=== PATIENT | female | born 1950 | race Caucasian/White ===

== ENCOUNTER → 2018-04-22 06:33 | Outpatient (CLI) | payer MEDICARE, OTHER, SELFPAY ==
--- NOTE | 2018-04-22 06:48 | CT_ITS ---
STUDY: CT INTERNAL AUDITORY CANALS WITHOUT CONTRAST. REASON FOR EXAM: Female, 67 years old. RADIATION DOSAGE (If Supplied By Facility): CTDIvol = ( 82.28 ) mGy, DLP = ( 765.64 ) mGycm. Thank you Individualized dose optimization techniques were used for this CT.? TECHNIQUE: Thin slice helical CT acquisition was performed through the temporal bones from the level of the maxilla to the superior orbits 0.65 mm slice thickness, with coronal and sagittal reconstructions through the temporal bones and internal auditory canals. COMPARISON: None. FINDINGS: Extra cranial soft tissues: Cranial soft tissues including orbital contents exhibit no acute abnormality. There is a lipoma of the right scalp above the ear. The lipoma measures up to 4.2 cm craniocaudal, 1.4 cm transverse thickness, 5.5 cm anterior-posterior. Craniofacial osseous structures: No acute abnormality. Paranasal sinuses: Clear. Upper cervical soft tissues and pharyngeal soft tissues: Normal. Brain: Evaluated portions exhibit no acute abnormality. Limited evaluation. Right temporal bone: The mastoid air cells are clear. The middle ear cavity is clear. Normal external auditory canal. Symmetric and grossly normal appearance of the internal auditory canal, 3 normal turns of the cochlea, normal saccular utricle, 3 normally oriented semicircular canals. Normal appearance of the malleus, incus and stapes and tympanic membrane. Normal external auditory canal. Normal appearance of the stapedial footplate. Left temporal bone: There is partial opacification of the left mastoid sinuses, with mucoperiosteal thickening extending into the middle ear cavity, but without complete opacification of the middle ear cavity. Normal appearance of the malleus, incus, stapes and stapedial footplate. Normal appearance of the internal auditory canal, 3 normal turns of the cochlea, normal saccular utricle, and 3 normally oriented semicircular canals. Normal appearance of the tympanic membrane and external auditory canal. CT/Orb Sella Post Fossa Ear w/o IMPRESSION: 1. Lipoma of the right temporal scalp. 2. Normal appearance of the vestibular and acoustic apparatus on the right. 3. Partial opacification of the mastoid sinuses on the left, and mucoperiosteal thickening in the middle ear cavity. These features favor mastoiditis and otitis media. ENT consultation is recommended. 4. On the left the vestibular and acoustic apparatus of the temporal bone appear otherwise normal and symmetric compared to the right. Electronically Signed: Dontrell Benavides, at 17:57 EDT Tel , Service support ,
== END ==
PROVIDERS: Visit Provider Otolaryngology
DX: H71.92 Unspecified cholesteatoma, left ear (principal); G93.9 Disorder of brain, unspecified
CPT/HCPCS: 70480

== ENCOUNTER 2018-08-01 09:56 | Day surgery (SDC) | payer MEDICARE, OTHER, SELFPAY ==
--- NOTE | 2018-07-26 08:49 | EKG12_ITS ---
Test Reason : PREOP Blood Pressure : / mmHG Vent. Rate : 054 BPM Atrial Rate : 054 BPM P-R Int : 196 ms QRS Dur : 074 ms QT Int : 466 ms P-R-T Axes : 025 011 017 degrees QTc Int : 441 ms Sinus bradycardia Nonspecific T wave abnormality Abnormal ECG Confirmed by BRIGHT AYALA, SENA ([id number]), magazine editor SARAHI SIMMONS ([id number]) on 07/29/2018 10:49:00 AM Referred By: Ezio Aparicio Confirmed By:SENA NOVOA MD
[2018-07-26 09:47] LABS: Hemoglobin A1c 5.6 % (4.2-6.3)
[2018-07-26 09:59] LABS: Anion Gap 9 (5-15); BUN 15 mg/dL (7-18); BUN/Creat Ratio 23.5 RATIO (10-20); Calcium,Total 8.6 mg/dL (8.5-10.1); Chloride 106 mmol/L (98-107); Creatinine, Serum 0.64 mg/dL (0.55-1.02); EST Glomerular Filtration Rate 99 mL/min (>60); Est Glom Filt Rate - Afr Amer 120 mL/min (>60); Glucose 93 mg/dL (74-106); Potassium 3.6 mmol/L (3.5-5.1); Sodium Level 142 mmol/L (136-145)
[2018-08-01 10:29] VITALS: BP 186/69; PULSE 63; RESP 16; TEMP 36.9; O2SAT 100; BMI 46.0
[2018-08-01 10:51] LABS: Bedside Glucose 108 mg/dL (70-110)
[2018-08-01 11:10] LABS: Hematocrit 45.1 % (37-47); Hemoglobin 14.4 g/dl (12.0-15.0); Mean Corp Hgb Conc 31.9 g/gl (32-36); Mean Corpuscular Hgb 27.7 pg (27.0-32.0); Mean Corpuscular Volume 86.7 fL (81-99); Mean Platelet Vol. 10.2 fl (6.2-12.0); Platelet Count 187 K/mm3 (150-450); RBC Distribution Width CV 13.2 % (11.6-14.6); RBC Distribution Width SD 41.9 fl (35.1-43.9); White Blood Count 6.8 K/mm3 (4.4-11.0)
[2018-08-01 11:12] LABS: Scan Indicated on CBC? Y/N NO
--- NOTE | 2018-08-01 12:35 | DCINST_ITS ---
You will use the following diet at home:: No restrictions Your food should be the consistency of: Regular Discharge Activity: Return to Normal Activity Additional Activity Instructions:: Remove dressing tomorrow morning. May shower and get the incision wet on Wednesday. Allergies/Adverse Reactions: Allergies No Known Allergies Allergy (Verified 07/25/18 08:30) Medications to take at Discharge Amlodipine [Norvasc] 5 mg PO DAILY 07/25/18 Lisinopril [Zestril] 20 po.syringe PO DAILY 07/25/18 Metformin HCl [Glucophage] 500 mg PO DINNER 07/25/18 Metoprolol Tartrate [Lopressor (Beta Haven)] 50 mg PO BID 07/25/18 Orders to be completed after discharge: 12 Lead EKG [[facility]] Time Frame: 07/26/18, Location: None Selected Primary Care Physician: Michaela Shaver DO [Primary Care Provider] - Test Results: Test results from this visit will be discussed in further detail at your follow- up appointment, if applicable.
[2018-08-01 13:40] VITALS: BP 106/58; BP 186/69; PULSE 77; RESP 16; TEMP 36.1; O2SAT 97
--- NOTE | 2018-08-01 13:40 | OP.PCM_ITS ---
Report of Operation Date of Procedure: 08/01/18 Pre-Operative Diagnosis: right temporal scalp neoplasm Post-Operative Diagnosis: same Surgery/Procedure Performed:: excision right temporal scalp lipoma Description of Surgical Findings:: lipoma Type of Anesthesia:: General Anesthesiologist: Russell Baeza Specimen's removed: lipoma Estimated Blood Loss (mL): minimal Description of Procedure: The patient was taken to the operating room on 08/01/18. She was placed in the supine position on the OR table. She was given sufficient general anesthesia. The right scalp was was prepped and draped steriley. I injected 1% lidocaine with epinephrine into the skin overlying the mass. After vasoconstriction, a 3 cm incision was made over the mass with a 15 blade. Hemostasis was achieved with monopolar cautery. I dissected bluntly down onto the mass and outlined the mass laterally. Next, I was able to establish a plane posteriorly on the temporalis fascia, which was deep to the mass. I then used sharp dissection to dissect the mass off of the temporalis fascia. Vessels were addressed with bipolar cautery. I continue dissection anteriorly. I then excised the mass by releasing it inferiorly with scissors. This was sent for permanent section. I then irrigated the cavity with copious amounts of saline. Hemostasis was achieved with bipolar cautery. I then closed the incision with 4-0 vicryl in an interrupted subcuticular fashion. Cavalon and steri strips were applied. I then applied a Canadian dressing. The procedure was terminated. The patient was awoken and brought to the recovery room in stable condition. Blood loss minimal, replacement none. Sponge, needle and instrument count were correct at the end of the procedure.
[2018-08-01 13:45] VITALS: BP 148/66; BP 186/69; PULSE 67; RESP 18; O2SAT 97
[2018-08-01 14:00] VITALS: BP 151/74; BP 186/69; PULSE 67; RESP 18; O2SAT 96
--- NOTE | 2018-08-01 14:00 | LIP_PTH ---
PATIENT: GANGA BRUCE LOC: [facility] [place] U#:[id number] AGE/SX: 68/F ROOM: RE08/01/[address]: Dr. Ezio Aparicio MD : 1950 BED: DIS: 08/01/2018 SPEC #: [id number] RECD: 08/01/18 15:33 STATUS: JEREMIAH REPatricia #: [id number] RANDY: 08/01/18 14:[address]: Ezio Aparicio DEPT: SURGICAL PATHOLOGY RECD BY: Chi Coronado ENTERED: 08/02/18 11:52 SP TYPE: LIPOMA OTHR DR: Dr. Michaela Shaver, DO Tissues: Scalp, NOS Procedures: Surgery Specimen Level III HEADER OPERATION: Excision lipoma right scalp PRE-OP DIAGNOSIS: Lipoma right scalp TISSUE SUBMITTED: Scalp lipoma, right temporal MICROSCOPIC DIAGNOSIS Scalp lipoma, right temporal, excision: Mature adipose tissue, consistent with lipoma. SJ:erick 08/03/18 MICROSCOPIC DESCRIPTION Slides are reviewed. GROSS DESCRIPTION Received in fixative is one container labeled with the patient's name and designated right temporal scalp lipoma. The specimen consists of two pieces of disrupted yellow adipose tissue that in aggregate measure 7.5 x 3 x 2 cm. The specimen is serially sectioned and reveals yellow adipose cut surfaces without area of hemorrhage, necrosis or cystic degeneration. Promotions Team Leader sections are submitted in two cassettes. / KUSH:erick 08/02/18 TC:1 CPT: 17019
[2018-08-01 14:10] LABS: Bedside Glucose 114 mg/dL (70-110)
[2018-08-01 14:15] VITALS: BP 155/81; BP 186/69; PULSE 71; RESP 18; TEMP 36.6; O2SAT 95
[2018-08-01 14:54] VITALS: BP 153/68; BP 186/69; PULSE 66; RESP 16; TEMP 36.7; O2SAT 94
== END 2018-08-01 15:17 | disposition home or self-care (01) ==
LOC: SDC 09:57 → AC 10:16
PROVIDERS: Anesthesiology; Referring Provider Otolaryngology; Visit Provider Otolaryngology
DX: D17.0 Benign lipomatous neoplasm of skin and subcutaneous tissue of head, face and neck (principal); R51 Headache; I10 Essential (primary) hypertension; E11.9 Type 2 diabetes mellitus without complications; Z79.84 Long term (current) use of oral hypoglycemic drugs; Z79.891 Long term (current) use of opiate analgesic; Z79.899 Other long term (current) drug therapy
CPT/HCPCS: 21012; 36415; 80048; 82962; 83036; 85027; 88304; 93005; J7120; J2405

== ENCOUNTER → 2020-09-24 05:51 | Outpatient (CLI) | payer MEDICARE, OTHER, SELFPAY ==
--- NOTE | 2020-09-24 07:55 | STRESSREP_ITS ---
Stress Test Report Date: 09-24-2020 Procedure: Pharmacologic stress nuclear imaging study Indications: Atrial fibrillation Consent: Per the patient Procedure: The patient underwent pharmacologic (Regadenoson 0.4mg ) evaluation with a peak heart rate of 136 beats per minute (89%predicted maximal heart rate) and a peak blood pressure of 136/72 mmHg. The baseline ECG demonstrated atrial fibrillation; low voltage QRS; nonspecific ST/T wave abnormality. The peak pharmacologic ECG demonstrated no obvious ECG changes. There were no cardiac dysrhythmias pretest, during pharmacologic infusion, or recovery. There was no complaint of chest discomfort during pharmacologic infusion or recovery. The examination was discontinued secondary to completion of protocol. Impression: 1. Pharmacologic (Regadenoson) evaluation 2. Peak pharmacologic ECG with no obvious ECG changes. 3. There were no cardiac dysrhythmias pretest, during pharmacologic infusion, or recovery. 4. Nuclear images pending Myocardial perfusion imaging study: Technique: The patient was injected with 14.6 millicuries of technetium 99m Cardiolite and subsequently rest SPECT Cardiolite nuclear imaging was obtained in the horizontal long, vertical long, and short axis views. The patient underwent pharmacologic (Regadenoson) evaluation with a peak heart rate of 136 beats per m inute (89% percent predicted maximal heart rate) and a peak blood pressure of 136/72 mmHg. The patient was injected with 44.9 millicuries of technetium 99m Cardiolite and subsequently stress SPECT Cardiolite nuclear imaging was obtained in the horizontal long, vertical long, and short axis views. A gated Cardiolite study at peak stress was obtained. Interpretation: Rest and stress SPECT Cardiolite nuclear imaging status post realignment, normalization, and attenuation correction demonstrate at rest the appearance of subtle diminished tracer uptake in portions of the distal anterior as well as the distal interventricular septal segments which appear to improve/normalize following stress. There is end systolic thickening and brightening. The gated Cardiolite study demonstrates myocardial thickening and inward wall motion. The reported LVEF is 65%. Impression: 1. Rest and stress SPECT Cardiolite nuclear imaging demonstrate myocardial perfusion changes at rest which appear to improve and/or normalize following stress appearing compatible with shifting soft tissue attenuation/artifact with no myocardial perfusion changes considered diagnostic for associated stress- induced myocardial ischemia. 2. The gated Cardiolite study reports an LVEF of 65%. This note was generated with Dragon dictation software. It may contain incorrect words, spelling, and punctuation that were not noted in checking the note before signing.
== END ==
PROVIDERS: PCP Student in an Organized Health Care Education/Training Program
DX: I48.91 Unspecified atrial fibrillation (principal); I07.1 Rheumatic tricuspid insufficiency; I10 Essential (primary) hypertension; R94.31 Abnormal electrocardiogram [ECG] [EKG]
CPT/HCPCS: 78452; 93017; A9500; A4216; J2785

== ENCOUNTER 2020-11-12 10:18 | Day surgery (SDC) | payer MEDICARE, OTHER, SELFPAY ==
[2020-10-17 15:54] VITALS: BMI 49.4
--- NOTE | 2020-10-28 10:57 | RAD_ITS ---
STUDY: X-RAY CHEST REASON FOR EXAM: Female, 70 years old. Pre procedure evaluation TECHNIQUE: PA and lateral views of the chest. COMPARISON: None. FINDINGS: The lungs are clear and expanded. There is no demonstrated pleural abnormality. There is mild cardiac enlargement. Normal mediastinum and nerissa. Normal visualized pulmonary arteries. There is atherosclerotic calcification of the aortic arch with tortuosity. Normal visualized thoracic spine. Normal visualized ribs, clavicles, and shoulders. There is no demonstrated abnormality of the visualized soft tissue structures of the upper abdomen. RAD/Chest PA and Lateral IMPRESSION: Mild cardiomegaly. No acute cardiopulmonary process. Electronically Signed: Aravind Sousa MD (Brooks) at 15:16 EDT , Service support ,
[2020-10-28 11:59] LABS: Anion Gap 7 (5-15); BUN 17 mg/dL (7-18); BUN/Creat Ratio 18.4 RATIO (10-20); Calcium,Total 8.8 mg/dL (8.5-10.1); Chloride 107 mmol/L (98-107); Creatinine, Serum 0.92 mg/dL (0.55-1.02); EST Glomerular Filtration Rate 64 mL/min (>60); Est Glom Filt Rate - Afr Amer 78 mL/min (>60); Glucose 102 mg/dL (74-106); Potassium 3.4 mmol/L (3.5-5.1); Sodium Level 141 mmol/L (136-145)
[2020-11-11 08:21] VITALS: BMI 49.4
--- NOTE | 2020-11-12 09:57 | PCM.HP.BLA ---
Problem List (1) Atrial fibrillation Status: Acute Qualifiers: History and Physical Date of Admission: 11/12/20 [facility] [address] [place] [address] OFFICE VISIT Date of Service: 10/17/20 MR#: [id number] Acct: [id number] Name: GANGA BRUCE Rep #: [id number] : 1950 Provider: Dr. Kulwant Anderson MD Age/Sex: 70/F [place] [facility] Status: Signed [facility] History of Present Illness Details: This is a 70-year-old white female who presents today for outpatient cardiovascular consultation based upon concerns of atrial fibrillation. She was found earlier this year to be in atrial fibrillation. She is being evaluated by her primary care physician through the [facility] system. According to a note from 09-13-2020 she was considered to have atrial fibrillation is a new diagnosis. The etiology was unclear. She subsequently underwent evaluation under their system with a transthoracic echocardiogram. According to the report the left ventricle was normal with an LVEF of 50 to 55% with the ventricular septum having dyssynergic motion, the mitral valve being mildly calcified with respect to the annulus and having mild MR, the left atrium being mildly dilated, the right ventricle having an estimated RV systolic pressure of 39 mmHg, the tricuspid valve having mild to moderate TR, and the right atrium having an estimated RA pressure of 8 mmHg. She has since undergone evaluation at [facility] which included a pharmacologic stress nuclear imaging study performed on 09-24-2020. Per the report she had no myocardial perfusion changes consider diagnostic for associated stress-induced myocardial ischemia. Her gated LVEF was 65%. She has been on medical therapy with rate control and anticoagulant therapy. She states she does not necessarily note her atrial dysrhythmia at this time. There is been no near syncope or syncope. She has had no ongoing issues of classic angina pectoris or overt issues of CHF or pulmonary edema. She did have an ECG in the office today. She was noted to remain in atrial fibrillation with a ventricular rate of 104 bpm with findings of poor R wave progression and diffuse nonspecific T wave abnormality. Intake Vital Signs 10/17/20 Height 5 ft 5 in 10/17/20 Weight: 297 lb 2 oz 10/17/20 BMI 49.4 10/17/20 BP 132/70 H 10/17/20 Blood Pressure Location Lt brachial 10/17/20 Position Sitting 10/17/20 Respiration 16 10/17/20 Pulse 104 H 10/17/20 Pulse Source Auscultation Intake Visit Reasons: A-fib/Self ref. Hangar Attendant Required: No Accompanied by: Self Allergies No Known Allergies Allergy (Verified 10/17/20 15:55) Medications Metoprolol Tartrate [Lopressor (Beta Haven)] 50 mg PO BID 07/25/18 [History Confirmed 10/17/20] metFORMIN HCl [Glucophage] 500 mg PO DINNER 07/25/18 [History Confirmed 10/17/20] diltiazem HCl 240 mg capsule,extended release 24 hr 240 mg PO DAILY 10/15/20 [History Confirmed 10/17/20] lisinopril 20 mg tablet 20 mg PO DAILY tab 10/15/20 [History Confirmed 10/17/20] magnesium oxide 500 mg tablet 500 mg PO DAILY 10/15/20 [History Confirmed 10/17/20] rivaroxaban 20 mg tablet 20 mg PO DAILY 10/15/20 [History Confirmed 10/17/20] furosemide 20 mg tablet 20 mg PO BID 10/17/20 [History Confirmed 10/17/20] PFS Medical History Non-rheumatic tricuspid valve insufficiency (Acute) Non-rheumatic mitral regurgitation (Acute) Pure hypercholesterolemia (Chronic) Essential hypertension (Chronic) Type 2 diabetes mellitus (Chronic) Atrial fibrillation (Acute) Anxiety (Acute) Surgical History History of hysterectomy (Resolved) Family History Mother Diabetes Hypertension Father Hypertension Social History (Updated 10/17/20 @ 18:[address] Kulwant Anderson MD) Smoking Status: Never smoker alcohol intake: never substance use type: does not use caffeine: Yes ROS Const Const: Negative for fatigue, weakness, frequent falls, excessive sweating, weight gain or weight loss Eyes Eyes: Negative for transient loss of vision, blurry vision or change in vision ENT ENT: Negative for dizziness or balance problems Cardio Chest Pain: No Palpitations: Yes feels like its: irregular Edema: Left (LE slight) Muscle aches with walking: None Resp Respiratory: Positive for SOB with activity; negative for SOB at rest GI GI: Negative vomiting or vomiting blood/hematemesis : Negative for hematuria Musc Musc: Negative for muscle aches/ myalgia, muscle weakness, joint pain or balance problems Skin Skin: Negative non-healing lesions or rash Neuro Neuro: Negative for dizziness, lightheadedness, orthostatic symptoms, frequent falls, weakness or blurry vision Alonzo Hematologic/Lymphatic: Negative for easy bleeding Endo Endo: Negative for fatigue or excessive sweating Psych Psych: Negative for anxiety or depression Allergy Allergy/Immunology: Negative for hives, Negative for rash Cardiology Exam Const Appearance: cooperative, healthy appearing, comfortable, no acute distress, well developed and well groomed Nutritional Appearance: obese Orientation: alert, awake and oriented x3 Head Head: normal to inspection, normocephalic and atraumatic Ears: hearing grossly normal bilaterally Nose: external nose normal Face and Sinus: face symmetric Eyes Eyelids: eyelids normal Conjunctivae: conjunctivae normal Pupils: PERRL EOM: EOM intact bilaterally Neck Neck: normal visual inspection and full ROM Carotids: normal carotid upstroke Chest Chest inspection: normal inspection of the chest, symmetric chest movement and normal respiratory effort Auscultation: Bilateral: Clear to Auscultation Cardio Palpation: normal PMI Rhythm: irregular rhythm Heart sounds: S1 normal and S2 normal GI GI: normal to inspection, soft, bowel sounds present and obese Neuro General: alert, awake, oriented x3 and moves all extremities Skin Skin: no rashes or lesions noted Extremities Pulses: Normal: Right Radial Pulse, Left Radial Pulse Lower Extremity Edema: +1: Bilateral Psych Psychological: normal affect Assessment & Plan 1. Persistent atrial fibrillation I48.19 Plan She does have atrial fibrillation. The etiology is unclear at the moment although it may be related to a combination of her age and her hypertension history. At the moment she is on rate control with reasonable rate control. She is on anticoagulant therapy. She was asked to continue her medical therapy. She was asked to consider future evaluation with synchronized biphasic DC cardioversion. The procedure was were discussed with her. She states she will have to consider this and decide whether or not she wants to proceed in such manner versus continuing conservative medical therapy. 2. Nonrheumatic mitral valve regurgitation I34.0 Plan She does have a history of MR/TR. This is based upon her echocardiographic findings. She can be followed by history, exam, and future echocardiogram as deemed appropriate. Orders Orders: 12 Lead EKG performed by [facility] Today 3. Nonrheumatic tricuspid valve regurgitation I36.1 Plan She will continue evaluation care as noted. Orders Orders: 12 Lead EKG performed by [facility] Today 4. Pure hypercholesterolemia E78.00 Plan She has a history of hyperlipidemia. She states she is following with her PCP for this. Orders Orders: 12 Lead EKG performed by [facility] Today 5. Essential hypertension I10 Plan Her blood pressure appears to be reasonably well controlled today. Again this may be a contributing factor to her atrial dysrhythmia. She will need to continue medical therapy and follow-up. Orders Orders: 12 Lead EKG performed by [facility] Today Plan Detail Other Orders Orders: 12 Lead EKG performed by [facility] Today I48.91 Additional Comments The above was discussed with her at length. At the moment she wants to continue her current medications and consider her future options. She appeared agreeable to a future outpatient follow-up. Thank you for allowing me to participate in the care of your patient. Please don't hesitate to call if any issues arise. This note was generated using a voice recognition system and there may be incorrect words, spelling or punctuation that were not noted when reviewing the office note prior to saving. Follow Up 3 Months (PFM) Coding Level of Care Code Off vis,new,level 3 Diagnoses Persistent atrial fibrillation I48.19 ??Atrial fibrillation type: persistent (not longstanding) Nonrheumatic mitral valve regurgitation I34.0 Nonrheumatic tricuspid valve regurgitation I36.1 Pure hypercholesterolemia E78.00 Essential hypertension I10 Coding Level of Care Code Off vis,new,level 3 Diagnoses Persistent atrial fibrillation I48.19 ??Atrial fibrillation type: persistent (not longstanding) Nonrheumatic mitral valve regurgitation I34.0 Nonrheumatic tricuspid valve regurgitation I36.1 Pure hypercholesterolemia E78.00 Essential hypertension I10 Supplemental Info Supplemental Information Stress Test Report Date: 09-24-2020 Procedure: Pharmacologic stress nuclear imaging study Indications: Atrial fibrillation Consent: Per the patient Procedure: The patient underwent pharmacologic (Regadenoson 0.4mg ) evaluation with a peak heart rate of 136 beats per minute (89%predicted maximal heart rate) and a peak blood pressure of 136/72 mmHg. The baseline ECG demonstrated atrial fibrillation; low voltage QRS; nonspecific ST/T wave abnormality. The peak pharmacologic ECG demonstrated no obvious ECG changes. There were no cardiac dysrhythmias pretest, during pharmacologic infusion, or recovery. There was no complaint of chest discomfort during pharmacologic infusion or recovery. The examination was discontinued secondary to completion of protocol. Impression: 1. Pharmacologic (Regadenoson) evaluation 2. Peak pharmacologic ECG with no obvious ECG changes. 3. There were no cardiac dysrhythmias pretest, during pharmacologic infusion, or recovery. 4. Nuclear images pending Myocardial perfusion imaging study: Technique: The patient was injected with 14.6 millicuries of technetium 99m Cardiolite and subsequently rest SPECT Cardiolite nuclear imaging was obtained in the horizontal long, vertical long, and short axis views. The patient underwent pharmacologic (Regadenoson) evaluation with a peak heart rate of 136 beats per minute (89% percent predicted maximal heart rate) and a peak blood pressure of 136/72 mmHg. The patient was injected with 44.9 millicuries of technetium 99m Cardiolite and subsequently stress SPECT Cardiolite nuclear imaging was obtained in the horizontal long, vertical long, and short axis views. A gated Cardiolite study at peak stress was obtained. Interpretation: Rest and stress SPECT Cardiolite nuclear imaging status post realignment, normalization, and attenuation correction demonstrate at rest the appearance of subtle diminished tracer uptake in portions of the distal anterior as well as the distal interventricular septal segments which appear to improve/normalize following stress. There is end systolic thickening and brightening. The gated Cardiolite study demonstrates myocardial thickening and inward wall motion. The reported LVEF is 65%. Impression: 1. Rest and stress SPECT Cardiolite nuclear imaging demonstrate myocardial perfusion changes at rest which appear to improve and/or normalize following stress appearing compatible with shifting soft tissue attenuation/artifact with no myocardial perfusion changes considered diagnostic for associated stress-induced myocardial ischemia. 2. The gated Cardiolite study reports an LVEF of 65%. Diagnostics Electrocardiogram 10/17/20 Stress Test Nuclear Medicine 09/24/20 Stress Test 09/24/20 10/17/20 [id number] <Electronically signed by Kulwant Anderson MD> Date Kulwant Anderson MD Cosignmartha Signature: Date (if applicable) CC: Dr. Michaela Shaver, DO ~ I have examined the patient the following changes are noted: The patient elected to proceed with outpatient synchronized biphasic DC cardioversion. The procedure and risk were discussed with her. She was agreeable to this approach. Procedure Criteria Procedure Type: Elective COVID Risk Discussion: The surgeon/proceduralist and patient have discussed in detail the risk of exposure to and/or potential harm posed by the COVID-19 virus with having a surgery/procedure at this time versus the risk of delaying the surgery/procedure. It is not possible to know either the risk of delaying the surgery or procedure or chance of getting an infection with perfect accuracy, but a joint decision was made between the patient and the surgeon/proceduralist to proceed at this time with the scheduled surgery/procedure as indicated on the consent form.
--- NOTE | 2020-11-12 12:38 | PRO.PCM_ITS ---
Problem List (1) Atrial fibrillation Status: Acute Qualifiers: (2) Non-rheumatic mitral regurgitation Status: Acute (3) Essential hypertension Status: Chronic (4) Pure hypercholesterolemia Status: Chronic (5) Type 2 diabetes mellitus Status: Chronic Procedure Report Date of Procedure: 11/12/20 CONSCIOUS SEDATION REPORT BRIEF HISTORY OF PRESENT ILLNESS: The patient is a 70-year-old female who presented to [facility] for an elective outpatient cardioversion due to underlying atrial fibrillation. The patient reports no PO intake since midnight. The patient does have a history of obstructive sleep apnea. The patient reports no history of smoking and COPD. The patient denies any recent constitutional symptoms such as fevers, chills, nausea or vomiting. The patient denies previous anesthetic complications. Patient's last known ejection fraction was 50 to 55%. Patient reported taking her Xarelto within 24 hours of the procedure. PHYSICAL EXAMINATION: VITAL SIGNS: Reviewed and were acceptable. GENERAL: The patient is a female, in no apparent distress, speaking in full sentences. HEENT: Normocephalic, atraumatic. Mucous membranes are moist and pink. Good mouth opening noted. Trachea is midline. Good neck mobility. MP IV CHEST: S1, S2 irregularly irregular. No murmurs, rubs or gallops were noted. LUNGS: Clear to auscultation bilaterally without appreciable wheezes, rales or rhonchi. ABDOMEN: Soft, nontender, nondistended. Positive bowel sounds. EXTREMITIES: There is no clubbing, cyanosis or edema. ASA Class: II DESCRIPTION OF PROCEDURE: After confirmation of informed consent, the patient's anesthesia plan was reviewed in detail. Propofol was chosen. Risks and benefits were reviewed and the patient agreed to proceed. At 12:13 PM, the patient was given 40 mg of propofol. The patient required a total of 90 mg of propofol throughout the p rocedure to achieve appropriate sedation. The patient achieved an appropriate level of sedation and received 2 attempt s synchronized cardioversion, at 200 J and [address] Anderson at the bedside. This was successful in achieving normal sinus rhythm. The patient was monitored until 12:24 PM, at which time the patient reached their baseline mental status and function. The patient tolerated the procedure well. COMPLICATIONS: None ESTIMATED BLOOD LOSS: None RECOMMENDATIONS: Okay to recover in usual fashion. [id number]: Other Procedure See Report - [id number]
--- NOTE | 2020-11-12 12:44 | CARDIOVERS ---
Cardioversion Cardioversion: Date: ?2020 Procedure: Synchronized Biphasic DC Cardioversion Indications: Atrial fibrillation Consent: Per the Patient Anesthesia: per Dr. Holm of pulmonology and critical care medicine with propofol 90 mg IV push total Procedure: Synchronized Biphasic DC Cardioversion: 200 J x 1: Result: Atrial fibrillation Synchronized biphasic DC cardioversion: 300 J x 1: Result: Sinus rhythm Complications: no apparent complications This note was generated with MolecuLight[employer] software. It may contain incorrect words, spelling, and punctuation that were not noted in checking the note before signing.
== END 2020-11-12 13:27 | disposition home or self-care (01) ==
LOC: CLSP 10:18
PROVIDERS: Referring Provider Internal Medicine Cardiovascular Disease; Visit Provider Internal Medicine Cardiovascular Disease
DX: I48.19 Other persistent atrial fibrillation (principal); E78.00 Pure hypercholesterolemia, unspecified; I10 Essential (primary) hypertension; E11.9 Type 2 diabetes mellitus without complications; I08.1 Rheumatic disorders of both mitral and tricuspid valves; G47.33 Obstructive sleep apnea (adult) (pediatric); Z79.84 Long term (current) use of oral hypoglycemic drugs; Z79.01 Long term (current) use of anticoagulants; Z79.899 Other long term (current) drug therapy
CPT/HCPCS: 36415; 71046; 80048; 92960; 93005; J7040

== ENCOUNTER 2020-12-09 00:58 | Emergency (ER) | payer MEDICARE, OTHER, SELFPAY ==
[2020-12-03 09:56] VITALS: BMI 49.4
[2020-12-09 00:59] VITALS: BP 148/114; PULSE 121; RESP 16; TEMP 36.2; O2SAT 95; BMI 49.1
[2020-12-09 01:04] VITALS: BP 148/114; PULSE 121; RESP 16; TEMP 36.2; O2SAT 95
--- NOTE | 2020-12-09 01:10 | CT_ITS ---
STUDY: CT ABDOMEN AND PELVIS WITH CONTRAST REASON FOR EXAM: Female, 70 years old. ruq abd pain RADIATION DOSAGE (If Supplied By Facility): CTDIvol = ( 28.71 ) mGy, DLP = ( 1291.18 ) mGycm TECHNIQUE: Transaxial images were obtained from the dome of the diaphragm to the symphysis pubis without oral contrast. IV 100mL Isovue-370 was administered. Sagittal and coronal images were reconstructed. Individualized dose optimization techniques were used for this CT. COMPARISON: None. FINDINGS: Borderline cardiomegaly. Trace bilateral pleural effusions versus pleural thickening. Diffuse hepatic steatosis. Unremarkable spleen, pancreas, bilateral kidneys, and left adrenal. Approximately 1.9 cm heterogeneously enhancing nodule in the right adrenal, nonspecific. MRI in and out of phase may be obtained for further evaluation. Subcentimeter layering stones in the gallbladder. No CT evidence of acute appendicitis. Bowel loops nonobstructed. Distal colonic diverticulosis. No acute diverticulitis. No free air or free fluid. No adenopathy. Vascular calcification with no abdominal aortic aneurysm. Sections through the pelvis demonstrate evidence of prior hysterectomy. No adnexal mass. Incompletely distended urinary bladder. Subcutaneous edema/cellulitis in the anterior pelvic wall multilevel thoracolumbar spondylosis. Small sclerotic foci in the pelvic bones and proximal femoral, probably bone islands. CT/Abdomen/Pelvis W IV Cont ONLY IMPRESSION: Cholelithiasis. Diffuse hepatic steatosis. Other chronic findings as above. Electronically Signed: Harsh De La Cruz MD at 2:35 EDT Tel , Service support ,
--- NOTE | 2020-12-09 01:14 | ED.DCSUM_ITS ---
- ER Visit Summary Date of Service: 12/09/20 Chief Complaint: Right upper quadrant abdominal pain History of Present Illness: The patient is a 70 F history of A. fib, diabetes and hypertension. Prior cardioversion. Prior hysterectomy. Patient states she has had intermittent right upper quadrant abdominal pain for 2 months. Seems worse today. Currently she is pain-free. She denies any vomiting. No diarrhea. No melena. No fever. Thinks she may be slightly constipated. No dysuria. Physical Examination: Older female no acute distress vital signs stable afebrile. Initial blood pressure 140/114 initial heart rate 121. HEENT exam unremarkable. Moist with membranes. Neck nontender no lymphadenopathy. Lungs clear to auscultation bilaterally. Heart tachycardic rate about 120 no murmur. Chest wall nontender. Abdomen soft nontender nondistended normal bowel sounds. No peritoneal signs. Absolutely no right upper or right lower quadrant tenderness. No Watters sign or McBurney's point tenderness. No hernia or mass. No signs of obstruction. No pulsatile mass. She is obese. Patient is moving all 4 extremities. Trace lower extremity edema. Back nontender no CVA tenderness. Neurologically patient is awake and alert with no focal motor deficits. Test Results: CBC shows a white count 11.3 hemoglobin 13 no bands chemistries normal normal creatinine and gap liver enzymes normal. Lipase normal. UA shows blood but no acute signs of infection. Is contaminated sample. EKG A. fib rate of 155. No signs of RI or ischemia. CT abdomen pelvis with IV contrast shows cholelithiasis. Hepatic steatosis. And chronic changes. Read by the radiologist and reviewed by me. Repeat exam patient is doing well at 3:40 AM. She has no abdominal pain. She was given a dose of labetalol and her heart rate went from 150s to 80s. She does not want to be admitted to the hospital. She and her are comfortable with outpatient follow-up with general surgery. We discussed all of her test results and my diagnoses. Emergency Department Course and Treatment: Older female with prior right upper quadrant abdominal pain currently resolved and pain-free. Benign exam. Known history of A. fib and currently tachycardic. Treatment Plan: Continue her current medications. Follow-up with Dr. Inés Kee of general surgery for cholelithiasis. Disposition: Discharge Impression: Acute right upper quadrant abdominal pain secondary to cholelithiasis with biliary colic History of A. fib with acute RVR History of diabetes, hypertension high cholesterol Anticoagulated on Eliquis This note was generated with [employer]Got[employer] dictation software. It may contain incorrect words, spelling, and punctuation that were not noted in review of the chart prior to signing ED Disposition - Plan for ED Patient: Referrals: Michaela Shaver DO [Primary Care Provider] -
--- NOTE | 2020-12-09 01:17 | EKG12_ITS ---
Test Reason : DYSRYTHMIA Blood Pressure : / mmHG Vent. Rate : 155 BPM Atrial Rate : 150 BPM P-R Int : 000 ms QRS Dur : 070 ms QT Int : 300 ms P-R-T Axes : 000 -05 106 degrees QTc Int : 482 ms Atrial fibrillation Septal infarct , age undetermined Abnormal ECG Confirmed by BRIGHT AYALA, SENA ([id number]), editor & co founder IZZY WILSON ([id number]) on 12/11/2020 8:53:21 AM Referred By: REGIS Confirmed By:SENA NOVOA MD
[2020-12-09 01:23] LABS: Absolute Lymphocyte Count 1.83 X10^3/uL (0.83-4.51); Absolute Neutrophil Count 8.4 X10^3/uL (2.0-7.7); Basophil# 0.06 X10^3/uL; Basophil% 0.5 % (0-1); Eosinophil# 0.15 X10^3/uL; Eosinophils% 1.3 % (0-5); Hematocrit 42.9 % (37-47); Lymphocyte # 1.83 X10^3/ul (0.83-4.51); Lymphocyte % 16.3 % (19-41); Mean Corp Hgb Conc 30.3 g/dL (32-36); Monocyte# 0.78 X10^3/uL; Monocyte% 6.9 % (0-10); NRBC Flagged by Analyzer 0 % (0-5); Neutrophil % 74.7 % (47-70); Platelet Count 310 K/mm3 (150-450); RBC Distribution Width CV 13.9 % (11.6-14.6); RBC Distribution Width SD 44.7 fl (35.1-43.9); Red Blood Count 4.82 M/mm3 (4.2-5.4); White Blood Count 11.3 K/mm3 (4.4-11.0)
[2020-12-09] MEDS: 0.9% Normal Saline 1,000 ML 1000 ML IV (01:24)
[2020-12-09 01:30] LABS: Bacteria 0 SEEN /hpf (None Seen); Mucous, Urine 0 SEEN /hpf (<or=2+)
[2020-12-09 01:32] LABS: Color, Urine Yellow (Yellow); Glucose, Dipstick Normal (Normal); Ketone-Dipstick 5 mg/dl (Negative); Leukocyte Esterase-Dipstick 500 /ul (Negative); Nitrite-Dipstick Negative (Negative); Occult Blood-Urine 150 /ul (Negative); Protein-Dipstick 500 mg/dl (Negative); Specific Gravity, Urine 1.025 (1.002-1.030); Urine Bilirubin Dipstick Negative (Negative); Urine Clarity Sl. Cloudy (Clear); Urine Urobilinogen 1 mg/dl (Normal)
[2020-12-09 01:38] LABS: Red Blood Cells-Urine 5-10 SEEN /hpf (0-5); Squamous Epithelial Cells - UA 5-10 SEEN /hpf (5-10); White Blood Cells 10-25 SEEN /hpf (0-5)
[2020-12-09 01:43] LABS: AST(SGOT) 21 U/L (15-37); Alanine Aminotransfer ALT/SGPT 31 U/L (13-56); Albumin, Serum 3.3 g/dL (3.2-5.0); Alkaline Phosphatase 94 U/L (45-117); Anion Gap 6 (5-15); BUN 27 mg/dL (7-18); Bilirubin, Direct 0.16 mg/dL (0.00-0.30); Calcium,Total 8.7 mg/dL (8.5-10.1); Chloride 105 mmol/L (98-107); Creatinine, Serum 1.04 mg/dL (0.55-1.02); EST Glomerular Filtration Rate 56 mL/min (>60); Est Glom Filt Rate - Afr Amer 68 mL/min (>60); Estimated Creatinine Clearance 48.47 ml/min; Glucose 138 mg/dL (74-106); Lipase 207 U/L (73-393); Potassium 3.7 mmol/L (3.5-5.1); Protein, Total 7.3 g/dL (6.4-8.2); Sodium Level 137 mmol/L (136-145)
[2020-12-09 02:38] VITALS: BP 124/112; PULSE 132; RESP 15
[2020-12-09] MEDS: Labetalol (Prefilled) 20 MG/4 ML 40 MG IV (02:47)
[2020-12-09 02:59] VITALS: BP 120/96; PULSE 89; RESP 16; O2SAT 94
--- NOTE | 2020-12-09 03:42 | ED.DEP ---
ED Disposition - Plan for ED Patient: Disposition: Home or Assisted Living Instructions: ED Abdominal Pain Gallstone Poss Referrals: Michaela Shaver DO [Primary Care Provider] - As Needed Inés Kee MD [STAFF PHYSICIAN] - As soon as possible Additional Instructions: Call follow-up with Dr. Inés Kee of [facility] for further evaluation of your gallstones. Return if worsening pain, fever or intractable vomiting. Continue your current medications make sure you take your medications for your A. fib so that your heart rate does not go up again.
[2020-12-09 03:52] VITALS: BP 120/87; PULSE 90; RESP 16; O2SAT 96
== END 2020-12-09 03:53 | disposition home or self-care (01) ==
PROVIDERS: Emergency Provider Emergency Medicine
DX: R10.11 Right upper quadrant pain (principal); K80.70 Calculus of gallbladder and bile duct without cholecystitis without obstruction; E11.9 Type 2 diabetes mellitus without complications; I10 Essential (primary) hypertension; I48.91 Unspecified atrial fibrillation; Z79.01 Long term (current) use of anticoagulants; Z79.84 Long term (current) use of oral hypoglycemic drugs
CPT/HCPCS: 74177; 80048; 80076; 81001; 83690; 85025; 87086; 87088; 93005; 96361; 96374; 99283; J7030; Q9967; A4216

== ENCOUNTER 2020-12-11 08:17 | Observation (INO) | payer MEDICARE, OTHER, SELFPAY ==
[2020-12-11] VITALS (24 sets, daily range): BP systolic 90–159; BP diastolic 73–141; PULSE 88–144; RESP 16–31; TEMP 35.8–36.7; O2SAT 92–97; BMI 49.9; BMI 50.7
--- NOTE | 2020-12-11 08:52 | EKG12_ITS ---
Test Reason : Blood Pressure : / mmHG Vent. Rate : 143 BPM Atrial Rate : 141 BPM P-R Int : 000 ms QRS Dur : 074 ms QT Int : 306 ms P-R-T Axes : 000 000 175 degrees QTc Int : 472 ms Atrial fibrillation Septal infarct , age undetermined Abnormal ECG Confirmed by BRIGHT AYALA, SENA ([id number]), website/blog editor IZZY WILSON ([id number]) on 12/12/2020 9:17:01 AM Referred By: TATE Confirmed By:SENA NOVOA MD
--- NOTE | 2020-12-11 08:54 | EX.ED.DYSGE1 ---
HPI History of Present Illness Chief Complaint: Palpitations Informant: patient and spouse/S.O. Narrative Narrative: 70-year-old female presents to the emergency department with atrial fibrillation with RVR. Patient can provide very little information as to her previous medical history/recent history. She tells me that she just signed out of [facility] where she was there for abdominal pain. She tells me that her surgeon at [facility] told her that if she needed to have her gallbladder removed she should go there. She has been having nightly abdominal pain and was found to have cholelithiasis on CT a couple days ago. So the patient went to [facility] and was noted to be in A. fib with RVR. They gave her 3 doses of metoprolol and were going to place her on diltiazem. The patient could not take the cold so she signed out and came here. Patient states she is no longer having abdominal pain. She tells me that her doctors told her to stop taking her diltiazem because it was causing the rash that is on her bilateral legs and feet. According to their notes she was to continue diltiazem and metoprolol but be changed from Xarelto to Eliquis. She states that she is on Keflex because of this rash. Nursing informs me that she had a cardioversion last month and was in sinus rhythm. [facility] Medical History (Updated 12/11/20 @ 10:[address] Dylan Sarkar, ) Anxiety Atrial fibrillation Essential hypertension Non-rheumatic mitral regurgitation Non-rheumatic tricuspid valve insufficiency Pure hypercholesterolemia Type 2 diabetes mellitus Home Medications metformin 500 mg PO DINNER 07/25/18 [History Last Taken Unknown] lisinopril 20 mg tablet 20 mg PO DAILY tablet 10/15/20 [History Last Taken Unknown] potassium chloride 20 mEq tablet,extended release 20 meq PO DAILY #30 tab 10/29/20 [Rx Last Taken Unknown] furosemide 20 mg tablet 20 mg PO BID #180 tablet 11/20/20 [Rx Last Taken Unknown] apixaban 5 mg tablet 5 mg PO BID #60 tablet 12/03/20 [Rx Last Taken Unknown] betamethasone valerate 0.1 % topical cream 1 applic TOPICAL BID PRN 12/03/20 [History Last Taken Unknown] cephalexin 750 mg capsule 750 mg PO BID #20 cap 12/03/20 [Rx Last Taken Unknown] metoprolol tartrate 50 mg tablet 75 mg PO BID tablet 12/03/20 [History Last Taken Unknown] Allergy/AdvReac Type Severity Reaction Status Date / Time No Known Allergies Allergy Verified 12/11/20 08:24 Family History Mother Diabetes Hypertension Father Hypertension Surgical History History of cardioversion (~11/12/20) History of hysterectomy Social History Smoking Status: Never smoker alcohol intake: never substance use type: does not use caffeine: Yes ROS ROS ED Constitutional Constitutional ED: Denies chills or weight loss Eyes Eyes: Denies change in vision or diplopia ENT ENT ED: Denies ear pain, rhinorrhea or sore throat Cardiovascular Cardiovascular: Reports palpitations and racing heartbeat; Denies chest pain or orthopnea Respiratory/Chest Respiratory/Chest: Denies cough, dyspnea or orthopnea Gastrointestinal Gastrointestinal: Reports abdominal pain and nausea; Denies diarrhea or vomiting Genitourinary Genitourinary ED: Denies dysuria, hematuria or urinary frequency Musculoskeletal Musculoskeletal: Denies arthralgias or myalgias Integumentary Reports rash; Denies abscess Neurologic Neurologic: Denies headache(s) or weakness Psychiatric Psychiatric: Denies anxiety, depression, suicidal ideation or suicidal thoughts Endocrine Endocrinology: Denies polydipsia, polyphagia or polyuria Allergic/Immunologic Allergic/Immunologic ED: Denies mouth swelling, tongue swelling or urticaria EXAM Physical Exam Const Vital Signs: 12/11/20 08:19 12/11/20 08:34 12/11/20 09:20 Temperature 97.3 F L Temperature Source Temporal Pulse Rate 132 H 144 H Respiratory Rate 17 18 Respiratory Effort Normal Non-Labored Respiratory Pattern Normal Blood Pressure 159/87 H 157/119 H Blood Pressure Mean 111 131 Pulse Ox 97 95 Oxygen Delivery Method Room Air 12/11/20 09:51 12/11/20 10:30 12/11/20 10:40 Temperature Temperature Source Pulse Rate 104 H 127 H 110 H Respiratory Rate 18 16 18 Respiratory Effort Respiratory Pattern Blood Pressure 120/100 H 127/107 H 127/107 H Blood Pressure Mean 106 113 113 Pulse Ox 96 Oxygen Delivery Method Room Air Positive well nourished, well developed and obese General Appearance ED: well developed Nutritional Appearance: obese HEENT Reports normocephalic, head/scalp atraumatic and moist mucous membranes Eyes PERRL and EOMs intact bilaterally Neck no lymphadenopathy, supple and no JVD Resp normal respiratory effort and clear to auscultation bilaterally Cardio Cardio Narrative: Irregularly irregular tachycardic rhythm GI normal to inspection, nondistended, normoactive bowel sounds and non-tender Palpation: soft Back/Spine no CVA tenderness and normal ROM Neuro oriented x3 and CN's II-XII intact bilaterally Sensorium / Orientation: alert Motor Exam: strength 5/5 throughout Psych mental status grossly normal Mood & Affect: Negative for depressed or tearful Skin Skin Narrative: The bilateral lower extremities show patchy thickened skin that is erythematous and sores with clear drainage. 2+ lower extremity edema. MDM MDM MDM Narrative Medical decision making narrative: Patient received a Cardizem bolus of 20 mg and was placed on a drip and we currently are titrating up to 10. She has had rates around 100-1 10 and then when I went to reexamine her rate was up to 130. Patient is extremely anxious about potentially being admitted. She would like to go up to the floor and take a look around to make sure that the room of the floor she is going to be assigned to is conducive to her feeling comfortable. My interpretation of the single portable chest x-ray is no acute process. Patient is anticoagulated already on Eliquis. I think if she truly has stopped her diltiazem that is probably why she is back in A. fib and not in her sinus rhythm like she was at the end of last month's cardioversion. As far as her abdominal pain that occurs nightly could very well be due to cholelithiasis/biliary colic. However her LFTs are normal lipase normal and her white count is normalized at 10. Her abdominal exam is benign for me at the time. I will speak with the hospitalist Lab Data Attestation: I reviewed the patient's lab results. Labs: Laboratory Results - last 24 hr 12/11/20 12/11/20 12/11/20 08:45 08:45 10:01 WBC 10.3 RBC 5.06 Hgb 13.7 Hct 45.1 MCV 89.1 MCH 27.1 MCHC 30.4 L RDW Std Deviation 46.6 H RDW Coeff of Callum 14.6 Plt Count 309 MPV 11.9 Immature Gran % (Auto) 0.600 Neut % (Auto) 77.1 H Lymph % (Auto) 14.5 L [place] % (Auto) 6.4 Eos % (Auto) 0.8 Baso % (Auto) 0.6 Absolute Neuts (auto) 7.9 H Absolute Lymphs (auto) 1.49 Nucleated RBC % 0 Sodium 139 Potassium 4.5 Chloride 108 H Carbon Dioxide 25.0 Anion Gap 6 BUN 28 H Creatinine 0.96 Estim Creat Clear Calc 50.47 Est GFR (MDRD) Af Amer 74 Est GFR (MDRD) Non-Af 61 BUN/Creatinine Ratio 29.0 H Glucose 132 H Calcium 8.7 Total Bilirubin 0.60 AST 33 ALT 42 Alkaline Phosphatase 86 Troponin I < 0.015 Total Protein 7.4 Albumin 3.3 Globulin 4.1 Albumin/Globulin Ratio 0.8 L Lipase 186 Urine Color Yellow Urine Clarity Clear Urine pH 5.0 Ur Specific Powell 1.025 Urine Protein 100 H Urine Glucose (UA) Normal Urine Ketones 5 H Urine Occult Blood 50 H Urine Nitrite Negative Urine Bilirubin Negative Urine Urobilinogen Normal Ur Leukocyte Esterase 500 H Urine RBC 0-5 SEEN Urine WBC 5-10 SEEN Ur Squamous Epith Cells 0-5 SEEN Urine Bacteria 0 SEEN Urine Mucus 0 SEEN Radiography Diagnostic Testing: Radiology Impression Chest X-Ray 12/11/20 09:30 IMPRESSION: No acute abnormality is seen. Electronically Signed: Freddie Patricia MD at 10:17 EDT , Service support , Discharge Plan Dx/Rx/DC Orders Clinical Impression: Atrial fibrillation with rapid ventricular response, Lymphedema, Biliary colic Disposition Disposition: Acute Care [facility]
[2020-12-11] MEDS: dilTIAZem 25 MG/5 ML Vial 20 MG IV BOLUS (09:20)
--- NOTE | 2020-12-11 09:30 | RAD_ITS ---
STUDY: X-RAY CHEST REASON FOR EXAM: Female, 70 years old. Palpitations TECHNIQUE: Single AP portable view of the chest. COMPARISON: Comparison is made with prior study 10/28/2020. FINDINGS: EKG electrodes are seen. The lungs are clear and expanded. There is no demonstrated pleural abnormality. There is mild cardiac enlargement. Normal mediastinum and nerissa. Normal visualized pulmonary arteries. There is atherosclerotic tortuosity of the aortic arch and descending thoracic aorta. Normal visualized thoracic spine. Normal visualized ribs, clavicles, and shoulders. There is no demonstrated abnormality of the visualized soft tissue structures of the upper abdomen. RAD/Chest 1 View (Portable) IMPRESSION: No acute abnormality is seen. Electronically Signed: Freddie Patricia MD at 10:17 EDT , Service support ,
[2020-12-11 09:32] LABS: Absolute Lymphocyte Count 1.49 X10^3/uL (0.83-4.51); Absolute Neutrophil Count 7.9 X10^3/uL (2.0-7.7); Basophil# 0.06 X10^3/uL; Basophil% 0.6 % (0-1); Eosinophil# 0.08 X10^3/uL; Eosinophils% 0.8 % (0-5); Hematocrit 45.1 % (37-47); Hemoglobin 13.7 g/dL (12.0-15.0); Lymphocyte # 1.49 X10^3/ul (0.83-4.51); Lymphocyte % 14.5 % (19-41); Mean Corp Hgb Conc 30.4 g/dL (32-36); Mean Corpuscular Hgb 27.1 pg (27.0-32.0); Mean Corpuscular Volume 89.1 fL (81-99); Mean Platelet Vol. 11.9 fl (6.2-12.0); Monocyte# 0.66 X10^3/uL; Monocyte% 6.4 % (0-10); NRBC Flagged by Analyzer 0 % (0-5); Neutrophil # 7.92 X10^3/uL (2.7-7.7); Neutrophil % 77.1 % (47-70); Platelet Count 309 K/mm3 (150-450); RBC Distribution Width CV 14.6 % (11.6-14.6); RBC Distribution Width SD 46.6 fl (35.1-43.9); Red Blood Count 5.06 M/mm3 (4.2-5.4); White Blood Count 10.3 K/mm3 (4.4-11.0)
[2020-12-11 09:51] LABS: ALB/GLOB Ratio 0.8 RATIO (0.9-2.4); AST(SGOT) 33 U/L (15-37); Alanine Aminotransfer ALT/SGPT 42 U/L (13-56); Albumin, Serum 3.3 g/dL (3.2-5.0); Alkaline Phosphatase 86 U/L (45-117); Anion Gap 6 (5-15); BUN 28 mg/dL (7-18); Calcium,Total 8.7 mg/dL (8.5-10.1); Chloride 108 mmol/L (98-107); Creatinine, Serum 0.96 mg/dL (0.55-1.02); EST Glomerular Filtration Rate 61 mL/min (>60); Est Glom Filt Rate - Afr Amer 74 mL/min (>60); Estimated Creatinine Clearance 50.47 ml/min; Globulin 4.1 g/dL (2.2-4.2); Glucose 132 mg/dL (74-106); Lipase 186 U/L (73-393); Potassium 4.5 mmol/L (3.5-5.1); Protein, Total 7.4 g/dL (6.4-8.2); Sodium Level 139 mmol/L (136-145)
[2020-12-11 10:05] LABS: Bacteria 0 SEEN /hpf (None Seen); Mucous, Urine 0 SEEN /hpf (<or=2+)
[2020-12-11 10:07] LABS: Color, Urine Yellow (Yellow); Glucose, Dipstick Normal (Normal); Ketone-Dipstick 5 mg/dl (Negative); Leukocyte Esterase-Dipstick 500 /ul (Negative); Nitrite-Dipstick Negative (Negative); Occult Blood-Urine 50 /ul (Negative); Protein-Dipstick 100 mg/dl (Negative); Specific Gravity, Urine 1.025 (1.002-1.030); Urine Bilirubin Dipstick Negative (Negative); Urine Clarity Clear (Clear); Urine Urobilinogen Normal (Normal)
[2020-12-11 10:12] LABS: Squamous Epithelial Cells - UA 0-5 SEEN /hpf (5-10)
[2020-12-11 10:13] LABS: Red Blood Cells-Urine 0-5 SEEN /hpf (0-5); White Blood Cells 5-10 SEEN /hpf (0-5)
--- NOTE | 2020-12-11 11:03 | NURSING ---
106 LISA BERMUDEZ W RVR
[2020-12-11 13:15] LABS: Bedside Glucose 115 mg/dL (70-110)
--- NOTE | 2020-12-11 14:45 | PCM.HP.STD ---
[facility] - General General Date of Admission: 12/11/20 HPI Narrative GANGA BRUCE, is a 70 F who presents in A. fib with RVR. She was another hospital this morning who wanted to admit her for the A. fib however because the ER at that hospital was too cold she decided to leave [place] and come here to [place]. She has been having episodes of abdominal pain in her right upper quadrant consistent with biliary colic which she will need to be evaluated for as an outpatient. She was found to be in A. fib on EKG and her heart rate was in the 130s to 140s. She states that she stopped taking her Cardizem but cannot give a good explanation as to why, she has only been taking the metoprolol. She denies any chest pain, lightheadedness, syncope. She states that she was also recently started on Keflex secondary to a bilateral cellulitis. However she has been afebrile and does not have a leukocytosis. [facility] Medical History (Updated 12/11/20 @ 14:[address] Robert Sullivan MD) Anxiety Atrial fibrillation Chronic pain Depression Diabetes Essential hypertension Non-rheumatic mitral regurgitation Non-rheumatic tricuspid valve insufficiency Non-smoker Pure hypercholesterolemia Sleep apnea Type 2 diabetes mellitus Home Medications metformin 500 mg PO DINNER 07/25/18 [History Last Taken 12/09/20] lisinopril 20 mg tablet 20 mg PO DAILY tablet 10/15/20 [History Last Taken 12/10/20] potassium chloride 20 mEq tablet,extended release 20 meq PO DAILY #30 tab 10/29/20 [Rx Last Taken 12/09/20] furosemide 20 mg tablet 20 mg PO BID #180 tablet 11/20/20 [Rx Last Taken 12/10/20] apixaban 5 mg tablet 5 mg PO BID #60 tablet 12/03/20 [Rx Last Taken 12/10/20] betamethasone valerate 0.1 % topical cream 1 applic TOPICAL BID PRN 12/03/20 [History Last Taken Unknown] cephalexin 750 mg capsule 750 mg PO BID #20 cap 12/03/20 [Rx Last Taken 12/10/20] metoprolol tartrate 50 mg tablet 75 mg PO BID tablet 12/03/20 [History Last Taken 12/10/20] diltiazem HCl [Cardizem CD] 240 mg PO DAILY 12/11/20 [History Last Taken 12/02/20] Allergy/AdvReac Type Severity Reaction Status Date / Time No Known Allergies Allergy Verified 12/11/20 08:24 Family History Mother Diabetes Hypertension Father Hypertension Surgical History History of cardioversion (~11/12/20) History of hysterectomy Social History Smoking Status: Never smoker alcohol intake: never substance use type: does not use caffeine: Yes ROS Constitutional Constitutional: Denies chills, fatigue, fever(s) or weight loss Eyes Eyes: Denies change in vision or diplopia ENT HEENT: Denies ear pain, headache(s), rhinorrhea or sore throat Cardiovascular Cardiovascular: Reports palpitations and racing heartbeat; Denies chest pain, orthopnea or syncope Respiratory/Chest Respiratory/Chest: Denies cough, dyspnea or shortness of breath at rest Gastrointestinal Gastrointestinal: Reports abdominal pain and nausea; Denies diarrhea or vomiting Genitourinary Genitourinary: Denies dysuria, hematuria or urinary frequency Musculoskeletal Musculoskeletal: Denies arthralgias or myalgias Integumentary Integumentary: Reports rash Neurologic Neurologic: Denies focal weakness, headache(s), numbness, tingling or weakness Psychiatric Psychiatric: Denies anxiety, depression or suicidal thoughts Endocrine Endocrinology: Denies polydipsia, polyphagia or polyuria Allergic/Immunologic Allergic/Immunologic: Denies tongue swelling or urticaria Vital Signs Vital Signs Vital Signs: 12/11/20 08:19 12/11/20 08:34 12/11/20 09:20 Temperature 97.3 F L Temperature Source Temporal Pulse Rate 132 H 144 H Respiratory Rate 17 18 Respiratory Effort Normal Non-Labored Respiratory Pattern Normal Blood Pressure 159/87 H 157/119 H Blood Pressure Mean 111 131 Blood Pressure Source Blood Pressure Position Blood Pressure Location Pulse Ox 97 95 Oxygen Delivery Method Room Air 12/11/20 09:51 12/11/20 10:30 12/11/20 10:40 Temperature Temperature Source Pulse Rate 104 H 127 H 110 H Respiratory Rate 18 16 18 Respiratory Effort Respiratory Pattern Blood Pressure 120/100 H 127/107 H 127/107 H Blood Pressure Mean 106 113 113 Blood Pressure Source Blood Pressure Position Blood Pressure Location Pulse Ox 96 Oxygen Delivery Method Room Air 12/11/20 11:04 12/11/20 12:07 12/11/20 12:15 Temperature 97.3 F L Temperature Source Temporal Pulse Rate 122 H 101 H 117 H Respiratory Rate 20 H 24 H Respiratory Effort Respiratory Pattern Blood Pressure 132/99 H 155/141 H 139/115 H Blood Pressure Mean 110 145 123 Blood Pressure Source Monitor Monitor Blood Pressure Position Semi-Fowlers Semi-Fowlers Blood Pressure Location Right Arm Right Arm Pulse Ox 96 94 Oxygen Delivery Method Room Air Room Air 12/11/20 12:30 12/11/20 12:45 12/11/20 13:00 Temperature Temperature Source Pulse Rate 108 H 106 H 115 H Respiratory Rate 26 H Respiratory Effort Respiratory Pattern Blood Pressure 133/108 H 123/73 H 119/84 H Blood Pressure Mean 116 89 95 Blood Pressure Source Monitor Monitor Monitor Blood Pressure Position Semi-Fowlers Semi-Fowlers Semi-Fowlers Blood Pressure Location Right Arm Right Arm Right Arm Pulse Ox 92 Oxygen Delivery Method Room Air 12/11/20 13:19 Temperature Temperature Source Pulse Rate 88 Respiratory Rate Respiratory Effort Respiratory Pattern Blood Pressure Blood Pressure Mean Blood Pressure Source Blood Pressure Position Blood Pressure Location Pulse Ox Oxygen Delivery Method Physical Exam Const alert, oriented x3 and no apparent distress General Appearance: cooperative HEENT normocephalic and moist oral mucous membranes Eyes PERRL, EOMs intact bilaterally and conjunctivae normal Neck no lymphadenopathy, supple and no JVD Resp normal respiratory effort and clear to auscultation bilaterally Auscultation: Negative for crackles, rales, rhonchi or wheezes Cardio S1 normal heart sound, S2 normal heart sound, no murmurs, no rub and no gallops Rate: tachycardic Rhythm: abnormal rhythm GI soft to palpation, non-tender, non-distended and hepatosplenomegaly Extremity General Extremity: edema bilateral lower extremity Details: moderate Skin General Skin Exam: excoriation(s) Neuro moves all extremities and no focal motor deficits Psych affect normal Lab / Micro Data Result Diagrams: 12/11/20 08:45 12/11/20 08:45 Labs: Laboratory Results - last 24 hr 12/11/20 12/11/20 12/11/20 08:45 08:45 10:01 WBC 10.3 RBC 5.06 Hgb 13.7 Hct 45.1 MCV 89.1 MCH 27.1 MCHC 30.4 L RDW Std Deviation 46.6 H RDW Coeff of Callum 14.6 Plt Count 309 MPV 11.9 Immature Gran % (Auto) 0.600 Neut % (Auto) 77.1 H Lymph % (Auto) 14.5 L Rock % (Auto) 6.4 Eos % (Auto) 0.8 Baso % (Auto) 0.6 Absolute Neuts (auto) 7.9 H Absolute Lymphs (auto) 1.49 Nucleated RBC % 0 Sodium 139 Potassium 4.5 Chloride 108 H Carbon Dioxide 25.0 Anion Gap 6 BUN 28 H Creatinine 0.96 Estim Creat Clear Calc 50.47 Est GFR (MDRD) Af Amer 74 Est GFR (MDRD) Non-Af 61 BUN/Creatinine Ratio 29.0 H Glucose 132 H Calcium 8.7 Total Bilirubin 0.60 AST 33 ALT 42 Alkaline Phosphatase 86 Troponin I < 0.015 Total Protein 7.4 Albumin 3.3 Globulin 4.1 Albumin/Globulin Ratio 0.8 L Lipase 186 Urine Color Yellow Urine Clarity Clear Urine pH 5.0 Ur Specific Eldridge 1.025 Urine Protein 100 H Urine Glucose (UA) Normal Urine Ketones 5 H Urine Occult Blood 50 H Urine Nitrite Negative Urine Bilirubin Negative Urine Urobilinogen Normal Ur Leukocyte Esterase 500 H Urine RBC 0-5 SEEN Urine WBC 5-10 SEEN Ur Squamous Epith Cells 0-5 SEEN Urine Bacteria 0 SEEN Urine Mucus 0 SEEN POC Glucose 12/11/20 13:00 WBC RBC Hgb Hct MCV MCH MCHC RDW Std Deviation RDW Coeff of Callum Plt Count MPV Immature Gran % (Auto) Neut % (Auto) Lymph % (Auto) Rock % (Auto) Eos % (Auto) Baso % (Auto) Absolute Neuts (auto) Absolute Lymphs (auto) Nucleated RBC % Sodium Potassium Chloride Carbon Dioxide Anion Gap BUN Creatinine Estim Creat Clear Calc Est GFR (MDRD) Af Amer Est GFR (MDRD) Non-Af BUN/Creatinine Ratio Glucose Calcium Total Bilirubin AST ALT Alkaline Phosphatase Troponin I Total Protein Albumin Globulin Albumin/Globulin Ratio Lipase Urine Color Urine Clarity Urine pH Ur Specific Eldridge Urine Protein Urine Glucose (UA) Urine Ketones Urine Occult Blood Urine Nitrite Urine Bilirubin Urine Urobilinogen Ur Leukocyte Esterase Urine RBC Urine WBC Ur Squamous Epith Cells Urine Bacteria Urine Mucus POC Glucose 115 H Radiology Impression Chest X-Ray 12/11/20 09:30 IMPRESSION: No acute abnormality is seen. Electronically Signed: Freddie Patricia MD at 10:17 EDT , Service support , Assessment & Plan Assessment/Plan (1) Atrial fibrillation with rapid ventricular response: Status: Acute Code(s): I48.91 - Unspecified atrial fibrillation (2) Type 2 diabetes mellitus: Status: Chronic Code(s): E11.9 - Type 2 diabetes mellitus without complications Qualifiers: Diabetes mellitus complication status: without complication Diabetes mellitus assisted insulin use: without terminal superintendent use Qualified Code(s): E11.9 - Type 2 diabetes mellitus without complications (3) Lymphedema: Status: Acute Code(s): I89.0 - Lymphedema, not elsewhere classified Plan: 1. A. fib with RVR/HTN/lymphedema -Presented to an outside hospital with palpitations was found to be in A. fib however presented to this hospital because the other hospitals ER was too cold -Continue on her home metoprolol and Cardizem drip, will add her p.o. Cardizem that she is supposed to be on in the morning once her heart rate improves -She recently had a cardioversion -Continue with Eliquis -Continue with lisinopril as well as Lasix, she is demonstrating increased edema and on her recent cardiology visit there was indications of weeping therefore may need to actually increase her Lasix 2. DM 2 -We will hold her metformin and place her on sliding scale insulin -Accu-Cheks AC at bedtime, make adjustments as necessary 3. Biliary colic -She was recently here in the ER with biliary colic -She states that per her general surgeon she will need to have this taken care of at a larger tertiary center -Would recommend continued outpatient follow-up DVT: Eliquis OBSV E&M: [id number] Initial observation care L2
[2020-12-11 17:10] LABS: Bedside Glucose 105 mg/dL (70-110)
[2020-12-11] MEDS: Furosemide 20 MG Tablet PO (18:04)
[2020-12-11] MEDS: Metoprolol Tartrate 25 MG Tablet 75 MG PO (21:38)
[2020-12-11] MEDS: APIXABAN 5 MG TABLET PO (21:38)
--- NOTE | 2020-12-11 21:42 | NURSING ---
Unable to scan wrist band or medications this evening. Verified pt and medications with Blanka, RN CMast, RN
[2020-12-11 22:00] LABS: Bedside Glucose 134 mg/dL (70-110)
[2020-12-11] MEDS: MELATONIN 3 MG TABLET PO (22:52)
--- NOTE | 2020-12-11 22:55 | NURSING ---
Pt called this RN to room saying she 'has a problem' through conversation pt is very anxious, says she feels trapped by the IV and the B/P cuff attached to her and all she can think about it going home so she can sleep in her own bed. Pt states she is very anxious and just wants someone in there to talk to her all the time. Pt knows that she should stay for her heart and wants to get better. Offered pt melatonin, pt very hesitant to take anything, but was willing to try half of a 3mg melatonin. Gave the smaller dose. Spent time in room with pt reassuring her and attempting to calm her anxiety. Pt is afraid to take anything else because she knows she will just wake up and all the 'contraptions' will still be on her arms. Assured pt that we check hourly on our pt and we will be checking back in on her. ELLIOTT Cabrera
[2020-12-12] VITALS (19 sets, daily range): BP systolic 114–144; BP diastolic 78–114; PULSE 89–122; RESP 14–27; TEMP 36.6–36.9; O2SAT 96–99
--- NOTE | 2020-12-12 01:24 | NURSING ---
Pt called this RN to room and said she wanted to leave AMA. Notified Ruth Dang NP. TUAN Dang to room to speak with pt. Pt decided to stay through the night, will not sign out at this time. ELLIOTT Cabrera
[2020-12-12 06:40] LABS: Basophil# 0.05 X10^3/uL; Basophil% 0.5 % (0-1); Eosinophil# 0.13 X10^3/uL; Eosinophils% 1.4 % (0-5); Hematocrit 41.2 % (37-47); Hemoglobin 12.6 g/dL (12.0-15.0); Lymphocyte % 15.7 % (19-41); Mean Corp Hgb Conc 30.6 g/dL (32-36); Mean Corpuscular Volume 88.2 fL (81-99); Mean Platelet Vol. 11.2 fl (6.2-12.0); Monocyte# 0.82 X10^3/uL; Monocyte% 8.6 % (0-10); NRBC Flagged by Analyzer 0 % (0-5); Neutrophil # 7.01 X10^3/uL (2.7-7.7); Neutrophil % 73.5 % (47-70); Platelet Count 236 K/mm3 (150-450); RBC Distribution Width CV 14.6 % (11.6-14.6); RBC Distribution Width SD 46.2 fl (35.1-43.9); Red Blood Count 4.67 M/mm3 (4.2-5.4); White Blood Count 9.5 K/mm3 (4.4-11.0)
[2020-12-12 06:55] LABS: Bedside Glucose 126 mg/dL (70-110)
[2020-12-12 07:04] LABS: Anion Gap 5 (5-15); BUN 25 mg/dL (7-18); BUN/Creat Ratio 27.9 RATIO (10-20); Calcium,Total 8.4 mg/dL (8.5-10.1); Chloride 106 mmol/L (98-107); EST Glomerular Filtration Rate 66 mL/min (>60); Est Glom Filt Rate - Afr Amer 80 mL/min (>60); Estimated Creatinine Clearance 53.83 ml/min; Glucose 121 mg/dL (74-106); Potassium 3.7 mmol/L (3.5-5.1); Sodium Level 139 mmol/L (136-145)
[2020-12-12] MEDS: dilTIAZem CD 240 MG Capsule PO (08:24)
[2020-12-12] MEDS: Lisinopril 20 MG Tablet PO (09:04)
[2020-12-12] MEDS: Furosemide 20 MG Tablet PO (09:04)
[2020-12-12] MEDS: APIXABAN 5 MG TABLET PO (09:04)
[2020-12-12] MEDS: Metoprolol Tartrate 25 MG Tablet 75 MG PO (09:04)
--- NOTE | 2020-12-12 10:38 | PCM.DC ---
Discharge Instructions Outpatient Procedure Reason For Visit: AFIB WITH RVR Diet Discharge Diet: Low fat / Low cholesterol Activity Discharge Activity: Return to Normal Activity Dressing / Incision Call your doctor if you observe: Fever of 101 or Higher, Shortness of breath, Dizziness, Fainting spells, Swelling in the ankles, Chest pain and Increased palpitations (irregular heartbeat) Follow Up Care Test Results: Test results from this visit will be discussed in further detail at your follow-up appointment, if applicable. Discharge Plan Admission Admit Date/Time: 12/11/20 10:51 Attending Provider: Robert Sullivan Primary Care Provider: Michaela Shaver Instructions Patient Instructions: Low-Salt Choices, Atrial Fibrillation, Limiting Fluids, ED Peripheral Edema, Bilateral, ED Lymphedema Discharge Orders/Prescriptions Prescriptions: Continued betamethasone valerate 0.1 % cream 1 applic TOPICAL BID PRN (Reason: Itching) RF: 0 Eliquis 5 mg tablet 5 mg PO BID Qty: 60 RF: 11 cephalexin [Keflex] 750 mg capsule 750 mg PO BID Qty: 20 RF: 0 metformin 500 MG tablet 500 mg PO DINNER RF: 0 lisinopril 20 mg tablet 20 mg PO DAILY RF: 0 metoprolol tartrate 50 mg tablet 75 mg PO BID RF: 0 potassium chloride 20 mEq tablet extended release 20 meq PO DAILY Qty: 30 RF: 12 diltiazem HCl [Cardizem CD] 240 mg Capsule,Extended Release 24hr 240 mg PO DAILY RF: 0 furosemide 20 mg tablet 20 mg PO BID Qty: 180 RF: 3 Referrals: Michaela Shaver DO [Primary Care Provider] - In 1 Week Disposition Patient Disposition: Home, self care
[2020-12-12 11:07] LABS: Bedside Glucose 113 mg/dL (70-110)
--- NOTE | 2020-12-12 11:17 | PHA.DC.MR ---
Pharmacy Service has performed discharge medication reconciliation for this patient. No new medications at time of discharge review. Medications reviewed are from previously reported home medications. Home Medications metformin 500 mg PO DINNER 07/25/18 lisinopril 20 mg tablet 20 mg PO DAILY tablet 10/15/20 potassium chloride 20 mEq tablet,extended release 20 meq PO DAILY #30 tab 10/29/20 furosemide 20 mg tablet 20 mg PO BID #180 tablet 11/20/20 apixaban 5 mg tablet 5 mg PO BID #60 tablet 12/03/20 betamethasone valerate 0.1 % topical cream 1 applic TOPICAL BID PRN 12/03/20 cephalexin 750 mg capsule 750 mg PO BID #20 cap 12/03/20 metoprolol tartrate 50 mg tablet 75 mg PO BID tablet 12/03/20 diltiazem HCl [Cardizem CD] 240 mg PO DAILY 12/11/20 The patient's discharge medication list was reviewed for discrepancies and discrepancies were resolved.
--- NOTE | 2020-12-12 13:07 | DS.PCM_ITS ---
Providers Date of Admission: 12/11/20 Primary Care Physician: Dr. Michaela Shaver, DO Reason For Visit: AFIB WITH RVR Diagnosis Discharge Diagnosis (1) Atrial fibrillation with rapid ventricular response: Status: Resolved Code(s): I48.91 - Unspecified atrial fibrillation (2) Type 2 diabetes mellitus: Status: Chronic Code(s): E11.9 - Type 2 diabetes mellitus without complications Qualifiers: Diabetes mellitus termite inspector insulin use: without termite inspector use Diabetes mellitus complication status: without complication Qualified Code(s): E11.9 - Type 2 diabetes mellitus without complications (3) Lymphedema: Status: Acute Code(s): I89.0 - Lymphedema, not elsewhere classified Medications at Discharge Home Medications metformin 500 mg PO DINNER 07/25/18 lisinopril 20 mg tablet 20 mg PO DAILY tablet 10/15/20 potassium chloride 20 mEq tablet,extended release 20 meq PO DAILY #30 tab 10/29/20 furosemide 20 mg tablet 20 mg PO BID #180 tablet 11/20/20 apixaban 5 mg tablet 5 mg PO BID #60 tablet 12/03/20 betamethasone valerate 0.1 % topical cream 1 applic TOPICAL BID PRN 12/03/20 cephalexin 750 mg capsule 750 mg PO BID #20 cap 12/03/20 metoprolol tartrate 50 mg tablet 75 mg PO BID tablet 12/03/20 diltiazem HCl [Cardizem CD] 240 mg PO DAILY 12/11/20 Hospital Course Operations None Procedures None Summary of Care Provided Minutes Spent on Discharge: 35 Hospital Course: Per HPI: GANGA BRUCE, is a 70 F who presents in A. fib with RVR. She was another hospital this morning who wanted to admit her for the A. f ib however because the ER at that hospital was too cold she decided to leave [place] and come here to [place]. She has been having episodes of abdominal pain in her right upper quadrant consistent with biliary colic which she will need to be evaluated for as an outpatient. She was found to be in A. fib on EKG and her heart rate was in the 130s to 140s. She states that she stopped taking her Cardizem but cannot give a good explanation as to why, she has only been taking the metoprolol. She denies any chest pain, lightheadedness, syncope. She states that she was also recently started on Keflex secondary to a bilateral cellulitis. However she has been afebrile and does not have a leukocytosis. Hospital Course: 1. A. fib with RVR/HTN/[id number]-omni-old female who presented from an outside hospital with A. fib. She had left that hospital AMA secondary to the ER was too cold. She was started on a Cardizem drip and then restarted on metoprolol and p.o. Cardizem. Her heart rates have been controlled less than 100 during her stay. On occasion she will jump into the 120s briefly with activity but I do anticipate that with continued medication usage this will calm down. Overnight she did try to leave AMA however after extensive discussion with nursing she decided to stay however she is wanting to leave today. I discussed with her the risks and benefits of discharge today she expressed understanding and would still like to go home today. Would recommend that she continued all of her home medications and to not discontinue any medications without the approval of her primary care doctor or her knitting machine operator automatic. 2. Type 2 diabetes, biliary colic her chronic medical conditions which complicate her care. Her home medications were appropriate Physical Exam Const alert, oriented x3 and no apparent distress General Appearance: cooperative HEENT normocephalic and moist oral mucous membranes Eyes PERRL, EOMs intact bilaterally and conjunctivae normal Neck no lymphadenopathy, supple and no JVD Resp normal respiratory effort and clear to auscultation bilaterally Auscultation: Negative for crackles, rales, rhonchi or wheezes Cardio regular rate, S1 normal heart sound, S2 normal heart sound, no murmurs, no rub and no gallops Rhythm: abnormal rhythm GI soft to palpation, non-tender, non-distended and hepatosplenomegaly Extremity General Extremity: edema bilateral lower extremity Details: moderate Skin General Skin Exam: excoriation(s) Neuro moves all extremities and no focal motor deficits Psych affect normal ABG / Lab / Microbiology Data Result Diagrams: 12/12/20 06:05 12/12/20 06:05 Laboratory: Laboratory Results - last 24 hr 12/11/20 12/11/20 12/11/20 13:00 17:05 21:34 WBC RBC Hgb Hct MCV MCH MCHC RDW Std Deviation RDW Coeff of Callum Plt Count MPV Immature Gran % (Auto) Neut % (Auto) Lymph % (Auto) [place] % (Auto) Eos % (Auto) Baso % (Auto) Absolute Neuts (auto) Absolute Lymphs (auto) Nucleated RBC % Sodium Potassium Chloride Carbon Dioxide Anion Gap BUN Creatinine Estim Creat Clear Calc Est GFR (MDRD) Af Amer Est GFR (MDRD) Non-Af BUN/Creatinine Ratio Glucose Calcium POC Glucose 115 H 105 134 H 12/12/20 12/12/20 12/12/20 06:05 06:05 06:29 WBC 9.5 RBC 4.67 Hgb 12.6 Hct 41.2 MCV 88.2 MCH 27.0 MCHC 30.6 L RDW Std Deviation 46.2 H RDW Coeff of Callum 14.6 Plt Count 236 MPV 11.2 Immature Gran % (Auto) 0.300 Neut % (Auto) 73.5 H Lymph % (Auto) 15.7 L [place] % (Auto) 8.6 Eos % (Auto) 1.4 Baso % (Auto) 0.5 Absolute Neuts (auto) 7.0 Absolute Lymphs (auto) 1.50 Nucleated RBC % 0 Sodium 139 Potassium 3.7 Chloride 106 Carbon Dioxide 28.0 Anion Gap 5 BUN 25 H Creatinine 0.90 Estim Creat Clear Calc 53.83 Est GFR (MDRD) Af Amer 80 Est GFR (MDRD) Non-Af 66 BUN/Creatinine Ratio 27.9 H Glucose 121 H Calcium 8.4 L POC Glucose 126 H 12/12/20 10:53 WBC RBC Hgb Hct MCV MCH MCHC RDW Std Deviation RDW Coeff of Callum Plt Count MPV Immature Gran % (Auto) Neut % (Auto) Lymph % (Auto) [place] % (Auto) Eos % (Auto) Baso % (Auto) Absolute Neuts (auto) Absolute Lymphs (auto) Nucleated RBC % Sodium Potassium Chloride Carbon Dioxide Anion Gap BUN Creatinine Estim Creat Clear Calc Est GFR (MDRD) Af Amer Est GFR (MDRD) Non-Af BUN/Creatinine Ratio Glucose Calcium POC Glucose 113 H D/C Instructions Discharge Diet: Low fat / Low cholesterol Discharge Activity: Return to Normal Activity Call your doctor if you observe: Fever of 101 or Higher, Shortness of breath, Dizziness, Fainting spells, Swelling in the ankles, Chest pain and Increased palpitations (irregular heartbeat) Meaningful Use Info Meaningful Use Diagnoses (Choose all that apply): None applicable Discharge Plan Admission Admit Date/Time: 12/11/20 10:51 Attending Provider: Robert Sullivan Primary Care Provider: Michaela Shaver Instructions Patient Instructions: Low-Salt Choices, Atrial Fibrillation, Limiting Fluids, ED Peripheral Edema, Bilateral, ED Lymphedema Discharge Orders/Prescriptions Prescriptions: Continued betamethasone valerate 0.1 % cream 1 applic TOPICAL BID PRN (Reason: Itching) RF: 0 Eliquis 5 mg tablet 5 mg PO BID Qty: 60 RF: 11 cephalexin [Keflex] 750 mg capsule 750 mg PO BID Qty: 20 RF: 0 metformin 500 MG tablet 500 mg PO DINNER RF: 0 lisinopril 20 mg tablet 20 mg PO DAILY RF: 0 metoprolol tartrate 50 mg tablet 75 mg PO BID RF: 0 potassium chloride 20 mEq tablet extended release 20 meq PO DAILY Qty: 30 RF: 12 diltiazem HCl [Cardizem CD] 240 mg Capsule,Extended Release 24hr 240 mg PO DAILY RF: 0 furosemide 20 mg tablet 20 mg PO BID Qty: 180 RF: 3 Referrals: Michaela Shaver DO [Primary Care Provider] - In 1 Week Disposition Patient Disposition: Home, self care Inpatient E&M: [id number] Disch Hosp
== END 2020-12-12 10:41 | disposition home or self-care (01) ==
LOC: ED 10:59 → PCU 12-12 07:11
PROVIDERS: Admitting Provider Family Medicine; Emergency Provider Emergency Medicine; Visit Provider Family Medicine
DX: R00.2 Palpitations (principal); I48.91 Unspecified atrial fibrillation; R10.11 Right upper quadrant pain; I10 Essential (primary) hypertension; E78.00 Pure hypercholesterolemia, unspecified; E11.9 Type 2 diabetes mellitus without complications; Z79.899 Other long term (current) drug therapy; Z79.84 Long term (current) use of oral hypoglycemic drugs; Z79.01 Long term (current) use of anticoagulants; I89.0 Lymphedema, not elsewhere classified; K80.50 Calculus of bile duct without cholangitis or cholecystitis without obstruction
CPT/HCPCS: 36415; 71045; 80048; 80053; 81001; 82962; 83690; 84484; 85025; 93005; 96365; 96366; 96376; 97802; 99218; 99285; A4216; G0378

== ENCOUNTER 2021-01-10 10:20 | Emergency (ER) | payer MEDICARE, OTHER, SELFPAY ==
[2020-12-11 12:14] VITALS: BMI 50.7
[2021-01-10 10:21] VITALS: BP 161/72; PULSE 60; RESP 16; TEMP 36.2; O2SAT 96; BMI 46.5
--- NOTE | 2021-01-10 10:46 | US_ITS ---
STUDY: ABDOMINAL ULTRASOUND - RIGHT UPPER QUADRANT REASON FOR VISIT: Female, 70 years old RUQ PAIN -- PT ATE GRILLED CHEESE AT 8AM TECHNIQUE: Ultrasound evaluation of the right upper quadrant was performed with real-time and static kemp-scale imaging. TECHNICAL QUALITY: Adequate. COMPARISON: None. FINDINGS: Liver: The liver measures 18 cm. There is increased echogenicity consistent with fatty infiltration. The bile ducts are within normal limits. There is hepatic color flow. The direction of portal flow is hepatopetal. There is no demonstrated mass lesion. Gallbladder: Normal distended gallbladder. The gallbladder wall measures 1.9 mm. There is a negative sonographic Watters''s sign. There is no pericholecystic fluid. There are multiple echogenic structures within the gallbladder, consistent with multiple gallstones. Common Bile Duct (C.B.D.): The common bile duct measures 3.8 mm. Pancreas: Normal size of the head, body and tail of the pancreas. There is normal echogenicity of the pancreas. There is no demonstrated pancreatic mass or cyst. Right Kidney: Normal size of the right kidney. The right kidney measures 13.1 cm x 6.2 cm x 4.9 cm. Normal renal cortex. The right cortex measures 1.1 cm. There is no demonstrated renal mass or cyst. There is no right hydronephrosis. US/Gallbladder IMPRESSION: Fatty infiltration of the liver. Multiple gallstones. Electronically Signed: Freddie Patricia MD at 12:11 EDT , Service support ,
--- NOTE | 2021-01-10 10:50 | EDS_ITS ---
HPI HPI - GI History of Present Illness Chief Complaint: Abd Pain Informant: patient Abdominal Pain/Flank Pain Onset: Today Context: - (awoke w/ sx) Timing: Continuous Quality: Aching Location: Right Flank (upper; pt pointing to side and inframammary area) Current Severity: Moderate Maximum Severity: Moderate Worsened by: - (deep inspiration) Relieved by: Remaining Still Nausea/Vomiting/Emesis GI Symptom: Positive for Nausea (but it's always there -- no worse this AM); Negative for Vomiting Onset: - (unk) Diarrhea/Melena/Hematochezia GI Symptom: Negative for Diarrhea, Melena and Hematochezia Associated Symptoms Associated Symptoms: Negative for Dysuria, Frequency, Hematuria and Urgency Narrative Narrative: Patient is very poor historian who has had gallstones and RUQ biliary colic after meals, especially at night after dinner, for some time and has seen surgery for it but I've been waiting for them to work something out, I'm not sure what it is prior to being able to have a cholecystectomy. She woke up this AM w/ pleuritic pain in her right side; she can't tell if it is the same RUQ pain she has nightly or if it is in her chest, or more her side or her back, but points to her right anterolateral side and inframammary area w/ her whole hand. no other new sx this AM. Patient has been on Eliquis for months which she has been compliant with because of a history of atrial fibrillation. No history of DVT or PE. No recent long travel, hospitalization, immobilization, surgery. She has chronic bilateral leg swelling that is stable, no calf pain. [facility] Medical History Anxiety Atrial fibrillation Chronic pain Depression Diabetes Essential hypertension Non-rheumatic mitral regurgitation Non-rheumatic tricuspid valve insufficiency Non-smoker Pure hypercholesterolemia Sleep apnea Type 2 diabetes mellitus Home Medications metformin 500 mg PO DINNER 07/25/18 [History Last Taken 12/09/20] lisinopril 20 mg tablet 20 mg PO DAILY tablet 10/15/20 [History Last Taken 12/10/20] apixaban 5 mg tablet 5 mg PO BID #60 tablet 12/03/20 [Rx Last Taken 12/10/20] digoxin 250 mcg (0.25 mg) tablet 250 mcg PO DAILY 12/26/20 [History Last Taken Unknown] diltiazem HCl 120 mg capsule,extended release 24 hr 120 mg PO DAILY 12/26/20 [History Last Taken Unknown] furosemide 20 mg tablet 20 mg PO DAILY #180 tab 12/26/20 [Rx Last Taken Unknown] metoprolol tartrate 100 mg tablet 100 mg PO BID 12/26/20 [History Last Taken Unknown] potassium chloride 20 mEq tablet,extended release 40 meq PO DAILY #30 tab 12/26/20 [Rx Last Taken Unknown] Allergy/AdvReac Type Severity Reaction Status Date / Time No Known Allergies Allergy Verified 01/10/21 10:21 Family History Mother Diabetes Hypertension Father Hypertension Surgical History History of cardioversion (~11/12/20) History of hysterectomy Social History Smoking Status: Never smoker alcohol intake: never substance use type: does not use caffeine: Yes ROS ROS ED Constitutional Constitutional ED: Denies chills or fever(s) Eyes Eyes: Denies change in vision or diplopia ENT ENT ED: Denies rhinorrhea or sore throat Cardiovascular Cardiovascular: Denies palpitations Respiratory/Chest Respiratory/Chest: Denies cough or dyspnea Gastrointestinal Gastrointestinal: Reports as per HPI, abdominal pain and nausea; Denies diarrhea or vomiting Genitourinary Genitourinary ED: Denies dysuria or hematuria Musculoskeletal Musculoskeletal: Reports other Details: edema legs ; Denies back pain or neck pain Integumentary Denies abscess or rash Neurologic Neurologic: Denies headache(s), paresthesias or weakness Psychiatric Psychiatric: Denies anxiety or suicidal thoughts EXAM Physical Exam Const Vital Signs: 01/10/21 10:21 01/10/21 12:20 Temperature 97.2 F L Temperature Source Temporal Pulse Rate 60 Respiratory Rate 16 16 Blood Pressure 161/72 H 165/89 H Blood Pressure Mean 101 114 Pulse Ox 96 98 Oxygen Delivery Method Room Air Room Air Positive well nourished, well developed and obese General Appearance ED: well developed and NAD Nutritional Appearance: obese HEENT Reports moist mucous membranes normocephalic and atraumatic Eyes PERRL and EOMs intact bilaterally Neck full ROM and supple Resp normal respiratory effort and clear to auscultation bilaterally Cardio regular rate, regular rhythm and no murmurs GI non-distended Auscultation: normoactive bowel sounds Palpation: soft and tender LUQ (only. mild.); Negative for guarding or rebound tenderness present Back/Spine no CVA tenderness General Back: other FROM Extremity normal to inspection General Extremety ED: Yes edema; Negative for pulses abnormal or tenderness General Extremity: edema bilateral lower extremity (without signs of infection/wounds) Details: moderate; Negative for pulses abnormal Neuro oriented x3, CN's II-XII intact bilaterally and no sensory deficits noted Sensorium / Orientation: awake and alert Motor Exam: strength 5/5 throughout Skin no rashes or lesions noted and no wounds MDM MDM MDM Narrative Medical decision making narrative: During my examination, upon sitting the patient up and having her take deep inspiration, she states that the pain is got. When she lies back down, the pain in his back, and on exam she is tender in the right upper quadrant. Known history of gallstones and biliary colic. In my interpretation/judgment, this is biliary pain and not pleurisy/thoracic in etiology. Therefore, a CXR was obtained to screen for intrathoracic disease, in addition to repeating her gallbladder imaging and bloodwork and treating her with Zofran and morphine. She declined these medications. She remained stable, I suspect her symptoms given her relatively unremarkable work-up are due to biliary colic without signs of biliary obstruction or cholecystitis. The patient really wants to leave, I will discuss with her surgeon, but I do not think she needs to be admitted right now. We discussed reasons to return. Later discussed with Dr. Martinez, he reviewed some records seeing that Dr. Kee saw the patient as well, and they recommended referral to tertiary care center for her surgery mostly due to confounding medical factors and morbid obesity. Although the patient already left, she implied that this was not something she knew about. Dr. Martinez said he would have staff contact the patient to close the communication loop. Lab Data Attestation: I reviewed the patient's lab results. Labs: Laboratory Results - last 24 hr 01/10/21 01/10/21 10:55 10:55 WBC 9.4 RBC 5.43 H Hgb 14.5 Hct 46.7 MCV 86.0 MCH 26.7 L MCHC 31.0 L RDW Std Deviation 45.6 H RDW Coeff of Callum 14.5 Plt Count 300 MPV 10.2 Immature Gran % (Auto) 0.200 Neut % (Auto) 79.3 H Lymph % (Auto) 11.4 L [place] % (Auto) 7.5 Eos % (Auto) 1.1 Baso % (Auto) 0.5 Absolute Neuts (auto) 7.5 Absolute Lymphs (auto) 1.07 Nucleated RBC % 0 Sodium 142 Potassium 3.8 Chloride 107 Carbon Dioxide 28.0 Anion Gap 7 BUN 14 Creatinine 0.77 Estim Creat Clear Calc 48.45 Est GFR (MDRD) Af Amer 96 Est GFR (MDRD) Non-Af 79 BUN/Creatinine Ratio 18.2 Glucose 120 H Calcium 8.9 Total Bilirubin 0.30 AST 25 ALT 28 Alkaline Phosphatase 96 Total Protein 7.7 Albumin 3.5 Globulin 4.2 Albumin/Globulin Ratio 0.8 L Lipase 140 Radiography Chest X-Ray - ED: 1 View, Read by ED Physician, No Acute Disease and No Infiltrates Diagnostic Testing: Radiology Impression Gallbladder Ultrasound 01/10/21 10:46 IMPRESSION: Fatty infiltration of the liver. Multiple gallstones. Electronically Signed: Freddie Patricia MD at 12:11 EDT , Service support , Chest X-Ray 01/10/21 11:00 IMPRESSION: Mild cardiomegaly. Electronically Signed: Freddie Patricia MD at 11:34 EDT , Service support , Discharge Plan Triage Chief Complaint: Abd Pain ED Provider: Edward Michel Dx/Rx/DC Orders Clinical Impression: Biliary colic, Biliary calculi Instructions: ED Gallstones with Biliary Colic Prescriptions: No Action Eliquis 5 mg tablet 5 mg PO BID Qty: 60 RF: 11 metformin 500 MG tablet 500 mg PO DINNER RF: 0 lisinopril 20 mg tablet 20 mg PO DAILY RF: 0 metoprolol tartrate 100 mg tablet 100 mg PO BID RF: 0 diltiazem HCl 120 mg capsule,extended release 24hr 120 mg PO DAILY RF: 0 digoxin 250 mcg (0.25 mg) tablet 250 mcg PO DAILY RF: 0 furosemide 20 mg tablet 20 mg PO DAILY Qty: 180 RF: 3 potassium chloride 20 mEq tablet extended release 40 meq PO DAILY Qty: 30 RF: 12 Primary Care Provider: Leann Luo Referrals: Leann Luo MD [Primary Care Provider] - Dontrell Martinez MD [STAFF PHYSICIAN] - 3-5 Days Disposition Disposition: Home, self care Discharge Date/Time: 01/10/21 14:22
--- NOTE | 2021-01-10 11:00 | RAD_ITS ---
STUDY: X-RAY CHEST REASON FOR EXAM: Female, 70 years old. Right lower chest pain TECHNIQUE: Single AP portable view of the chest. COMPARISON: Comparison is made with prior study dated DECEMBER 03. FINDINGS: The lungs are clear and expanded. There is no demonstrated pleural abnormality. There is mild cardiac enlargement. Normal mediastinum and nerissa. Normal visualized pulmonary arteries. Normal visualized aortic arch and descending thoracic aorta. Normal visualized thoracic spine. Normal visualized ribs, clavicles, and shoulders. There is no demonstrated abnormality of the visualized soft tissue structures of the upper abdomen. RAD/Chest 1 View (Portable) IMPRESSION: Mild cardiomegaly. Electronically Signed: Freddie Patricia MD at 11:34 EDT , Service support ,
[2021-01-10 11:01] LABS: Absolute Lymphocyte Count 1.07 X10^3/uL (0.83-4.51); Absolute Neutrophil Count 7.5 X10^3/uL (2.0-7.7); Basophil# 0.05 X10^3/uL; Basophil% 0.5 % (0-1); Eosinophils% 1.1 % (0-5); Hematocrit 46.7 % (37-47); Hemoglobin 14.5 g/dL (12.0-15.0); Lymphocyte # 1.07 X10^3/ul (0.83-4.51); Lymphocyte % 11.4 % (19-41); Mean Corpuscular Hgb 26.7 pg (27.0-32.0); Mean Platelet Vol. 10.2 fl (6.2-12.0); Monocyte# 0.71 X10^3/uL; Monocyte% 7.5 % (0-10); NRBC Flagged by Analyzer 0 % (0-5); Neutrophil # 7.46 X10^3/uL (2.7-7.7); Neutrophil % 79.3 % (47-70); Platelet Count 300 K/mm3 (150-450); RBC Distribution Width CV 14.5 % (11.6-14.6); RBC Distribution Width SD 45.6 fl (35.1-43.9); Red Blood Count 5.43 M/mm3 (4.2-5.4); White Blood Count 9.4 K/mm3 (4.4-11.0)
[2021-01-10 11:19] LABS: ALB/GLOB Ratio 0.8 RATIO (0.9-2.4); AST(SGOT) 25 U/L (15-37); Alanine Aminotransfer ALT/SGPT 28 U/L (13-56); Albumin, Serum 3.5 g/dL (3.2-5.0); Alkaline Phosphatase 96 U/L (45-117); Anion Gap 7 (5-15); BUN 14 mg/dL (7-18); BUN/Creat Ratio 18.2 RATIO (10-20); Calcium,Total 8.9 mg/dL (8.5-10.1); Chloride 107 mmol/L (98-107); Creatinine, Serum 0.77 mg/dL (0.55-1.02); EST Glomerular Filtration Rate 79 mL/min (>60); Est Glom Filt Rate - Afr Amer 96 mL/min (>60); Estimated Creatinine Clearance 48.45 ml/min; Globulin 4.2 g/dL (2.2-4.2); Glucose 120 mg/dL (74-106); Lipase 140 U/L (73-393); Potassium 3.8 mmol/L (3.5-5.1); Protein, Total 7.7 g/dL (6.4-8.2); Sodium Level 142 mmol/L (136-145)
[2021-01-10 12:20] VITALS: BP 165/89; RESP 16; O2SAT 98
== END 2021-01-10 14:22 | disposition home or self-care (01) ==
PROVIDERS: Emergency Provider Emergency Medicine; PCP Internal Medicine
DX: K80.50 Calculus of bile duct without cholangitis or cholecystitis without obstruction (principal); K80.80 Other cholelithiasis without obstruction; E66.9 Obesity, unspecified
CPT/HCPCS: 71045; 76705; 80053; 83690; 85025; 99282; A4216

== ENCOUNTER → 2021-02-04 12:44 | Outpatient (CLI) | payer MEDICARE, OTHER, SELFPAY ==
[2021-02-03 09:58] VITALS: BMI 46.5
== END ==
PROVIDERS: Referring Provider Nurse Practitioner Family; Visit Provider Nurse Practitioner Family
DX: I48.91 Unspecified atrial fibrillation (principal)
CPT/HCPCS: 93225; 93226

== ENCOUNTER 2021-09-17 04:36 | Emergency (ER) | payer MEDICARE, OTHER, SELFPAY ==
[2021-09-17 04:37] VITALS: BP 177/80; PULSE 65; RESP 16; TEMP 36.6; O2SAT 100; BMI 47.7
--- NOTE | 2021-09-17 05:01 | RAD_ITS ---
STUDY: X-RAY - LEFT FEMUR REASON FOR STUDY: Female, 71 years old. Fall TECHNIQUE: 4 view(s) of the femur. COMPARISON: None. FINDINGS: Normal visualized femur. Normal visualized soft tissue structure. RAD/Femur Min 2 Views IMPRESSION: Normal x-ray examination of the femur. Electronically Signed: Julia Ramachandran MD at 5:23 EST ,
--- NOTE | 2021-09-17 05:01 | ED.VIS.LOWEX ---
HPI History of Present Illness Chief Complaint: Lower Extremity Injury Detail of Chief Complaint: Fell tonight. Informant: patient Occured/Mechanism Mechanism/Context: Yes injury, Yes blunt trauma, Yes fall and Yes same level fall Onset/Context/Timing Onset: Today and Hours Context: Sudden Onset Timing: Continuous Quality of Pain: Dull Current Severity: Mild Maximum Severity: Mild Associated Symptoms Associated Symptoms: Negative for Parasthesia, Weakness and Loss of Funtion Narrative Narrative: 71-year-old female history of anxiety, A. fib, hypertension, diabetes, chronic pain and on Eliquis for anticoagulation due to her A. fib. Around 3 AM this morning she was walking to the restroom in her home she slipped on water that was on the floor and fell to a wood composite floor. Complaining of discomfort to her thigh. She is able to walk. She denies hitting her head. She denies any other complaints or injuries. States prior to the fall she felt fine. And denies any recent illness. Prior similar symptoms: No Recent Illness/Hospitalization: No PFSH PFSH Medical History Anxiety Atrial fibrillation Chronic pain Depression Diabetes Essential hypertension Non-rheumatic mitral regurgitation Non-rheumatic tricuspid valve insufficiency Non-smoker Pure hypercholesterolemia Sleep apnea Type 2 diabetes mellitus Home Medications metformin 500 mg PO DINNER 07/25/18 [History Last Taken 12/09/20] lisinopril 20 mg tablet 20 mg PO DAILY tablet 10/15/20 [History Last Taken 12/10/20] apixaban 5 mg tablet 5 mg PO BID #60 tablet 12/03/20 [Rx Last Taken 12/10/20] furosemide 20 mg tablet 20 mg PO DAILY #180 tab 12/26/20 [Rx Last Taken Unknown] digoxin 250 mcg (0.25 mg) tablet 250 mcg PO DAILY #30 tab 01/17/21 [Rx Last Taken Unknown] diltiazem HCl 120 mg capsule,extended release 24 hr 120 mg PO DAILY #30 cap 01/17/21 [Rx Last Taken Unknown] metoprolol tartrate 100 mg tablet 100 mg PO BID #180 tab 01/23/21 [Rx Last Taken Unknown] potassium chloride 20 mEq tablet,extended release 20 meq PO DAILY tab 05/07/21 [History Last Taken Unknown] Allergy/AdvReac Type Severity Reaction Status Date / Time No Known Allergies Allergy Verified 05/07/21 09:07 Family History Mother Diabetes Hypertension Father Hypertension Surgical History History of cardioversion (~11/12/20) History of hysterectomy Social History Smoking Status: Never smoker alcohol intake: never substance use type: does not use caffeine: Yes ROS ROS ED ROS Narrative Denies recent illness. Review of Systems ROS Unobtainable: Denies due to encephalopathy Constitutional Constitutional ED: Denies fever(s) Eyes Eyes: Denies change in vision ENT ENT ED: Denies ear pain or sore throat Cardiovascular Cardiovascular: Denies chest pain Respiratory/Chest Respiratory/Chest: Denies dyspnea Gastrointestinal Gastrointestinal: Denies abdominal pain Genitourinary Genitourinary ED: Denies dysuria Musculoskeletal Musculoskeletal: Denies myalgias Integumentary Denies rash Neurologic Neurologic: Denies headache(s) Psychiatric Psychiatric: Denies depression Endocrine Endocrinology: Denies polyuria Hematologic/Lymphatic Hematologic/Lymphatic: Denies easy bruising Allergic/Immunologic Allergic/Immunologic ED: Denies urticaria EXAM Physical Exam Narrative Exam Narrative: 71-year-old female no acute distress. Sitting upright in bed. Significant other at bedside. Vital signs are stable afebrile. H EENT exam atraumatic. Pupils are reactive light. No tenderness or trauma to her face or scalp. No hematoma. Neck nontender. C-spine nontender. Trachea midline. Lungs clear to auscultation bilaterally. Heart irregular regular A. fib rate about 65. Chest wall nontender. Abdomen soft nontender. Normal bowel sounds no peritoneal signs. Patient is moving all 4 extremities. No deformity. Really no significant tenderness. The left hip thigh and knee are without significant tenderness. There is no swelling. She has full flexion-extension of both hips knees ankles and feet. Dorsi plantarflexion intact. There is no bony deformity. Upper extremities are nontender. Back is nontender. Neurologically she is awake and alert. GCS of 15. Const Vital Signs: 09/17/21 04:37 Temperature 97.9 F Temperature Source Oral Pulse Rate 65 Respiratory Rate 16 Blood Pressure 177/80 H Blood Pressure Mean 112 Pulse Ox 100 Oxygen Delivery Method Room Air Positive well nourished, well developed and obese; Negative for cachectic, contractures or unkempt General Appearance ED: well developed and NAD; Negative for unkempt, cachectic or contractures Nutritional Appearance: obese; Negative for cachectic HEENT Reports moist mucous membranes normocephalic and atraumatic; Negative for trauma or tenderness Eyes PERRL Neck full ROM and supple Thyroid: Negative for tender Chest Wall inspection of chest normal and palpation of chest normal Resp normal respiratory effort, no retractions and clear to auscultation bilaterally Auscultation: Negative for rales, rhonchi or wheezes Cardio regular rate, S1 normal heart sound, S2 normal heart sound and no murmurs; Negative for regular rhythm Cardio Narrative: A. fib rate about 65. GI non-tender, non-distended and no masses Inspection: Negative for abdominal distention Auscultation: normoactive bowel sounds Palpation: soft; Negative for tender, guarding or rebound tenderness present Back/Spine no CVA tenderness General Back: Negative for CVA tenderness Cervical Spine: Negative for cervical spine tenderness Thoracic Spine / Upper Back: Negative for thoracic spinal tenderness Lumbar Spine / Lower Back: Negative for lumbar spinal tenderness Extremity normal to inspection and full ROM General Extremety ED: Negative for cyanosis or edema General Extremity: Negative for cyanosis or edema Neuro oriented x3 and moves all extremities Sensorium / Orientation: alert, oriented to person, oriented to place and oriented to time; Negative for orientation impaired, confused, lethargic or stuporous Motor Exam: strength 5/5 throughout Psych mental status grossly normal Appearance: Negative for unkempt Mood & Affect: Negative for anxious Skin no wounds Lesions: no lesions Rashes: no rashes Trauma: Negative for abrasion or laceration MDM MDM MDM Narrative Medical decision making narrative: 71-year-old female slipped on water on the floor and fell at home. Concern for injury to her left upper leg. Exam benign. X-ray left femur will be obtained. Repeat exam patient is doing well at 5:24 AM. She had I discussed her x-ray results which were normal. She will be ambulated. Discharged home. Ice to her leg. Tylenol for pain. Follow-up if not improving return if worse. Radiography Diagnostic Testing: Left femur x-ray 2 views interpreted myself shows no acute abnormality. No fracture or dislocation. Discharge Plan Triage Chief Complaint: Lower Extremity Injury ED Provider: Rad Galvan Dx/Rx/DC Orders Clinical Impression: Fall, Contusion of left hip and thigh, History of atrial fibrillation, Chronic anticoagulation Instructions: Bruises (Contusions) Prescriptions: No Action Eliquis 5 mg tablet 5 mg PO BID Qty: 60 RF: 11 potassium chloride 20 mEq tablet extended release 20 meq PO DAILY RF: 0 metformin 500 MG tablet 500 mg PO DINNER RF: 0 lisinopril 20 mg tablet 20 mg PO DAILY RF: 0 furosemide 20 mg tablet 20 mg PO DAILY Qty: 180 RF: 3 digoxin 250 mcg (0.25 mg) tablet 250 mcg PO DAILY Qty: 30 RF: 12 diltiazem HCl 120 mg capsule,extended release 24hr 120 mg PO DAILY Qty: 30 RF: 12 metoprolol tartrate 100 mg tablet 100 mg PO BID Qty: 180 RF: 3 Primary Care Provider: Leann Luo Referrals: Leann Luo MD [Primary Care Provider] - 1 Week if not improving Activity Restrictions/Additional Instructions: Ice and elevate your leg to decrease the pain and swelling. Tylenol for pain. Follow-up with your doctor if not improving. Disposition Disposition: Home, Self Care
[2021-09-17 05:49] VITALS: BP 172/100; PULSE 64; RESP 16; O2SAT 96
== END 2021-09-17 05:52 | disposition home or self-care (01) ==
PROVIDERS: Emergency Provider Emergency Medicine; PCP Internal Medicine; Visit Provider Emergency Medicine
DX: S70.02XA Contusion of left hip, initial encounter (principal); I48.91 Unspecified atrial fibrillation; E11.9 Type 2 diabetes mellitus without complications; S70.12XA Contusion of left thigh, initial encounter; I10 Essential (primary) hypertension; E66.9 Obesity, unspecified; W18.30XA Fall on same level, unspecified, initial encounter; Z79.01 Long term (current) use of anticoagulants; Z79.84 Long term (current) use of oral hypoglycemic drugs; Z79.899 Other long term (current) drug therapy
CPT/HCPCS: 73552; 99282

== ENCOUNTER 2023-07-23 22:11 | Emergency (ER) | payer MEDICARE, OTHER, SELFPAY ==
--- NOTE | 2023-07-23 00:10 | RAD_ITS ---
EXAM: XR CHEST, 1 VIEW CLINICAL INDICATION: Congestive heart failure TECHNIQUE: Frontal view of the chest. COMPARISON: Single view chest 01/10/2021 FINDINGS: LUNGS AND PLEURAL SPACES: Unremarkable. No consolidation or edema. No pneumothorax. No effusion. HEART: Moderate enlargement of the cardiac silhouette. MEDIASTINUM: Central airways and mediastinal contour are unremarkable. BONES/JOINTS: Unremarkable. No acute fracture. SOFT TISSUES: Unremarkable. RAD/Chest 1 View (Portable) IMPRESSION: No acute findings in the chest. Electronically Signed: Cecil Butterfield MD at 0:33 EST ,
[2023-07-23 22:13] VITALS: BP 157/72; PULSE 60; RESP 18; TEMP 36.4; O2SAT 96
[2023-07-24 00:26] LABS: BNP,B-Type NATRIURETIC PEPTIDE 230.4 pg/mL (0-100)
[2023-07-24 00:30] LABS: ALB/GLOB Ratio 0.7 RATIO (0.9-2.4); AST(SGOT) 20 U/L (15-37); Alanine Aminotransfer ALT/SGPT 23 U/L (13-56); Albumin, Serum 3.2 g/dL (3.2-5.0); Alkaline Phosphatase 113 U/L (45-117); Anion Gap 6 (5-15); BUN 16 mg/dL (7-18); BUN/Creat Ratio 21.2 RATIO (10-20); Calcium,Total 8.4 mg/dL (8.5-10.1); Chloride 106 mmol/L (98-107); Creatinine, Serum 0.75 mg/dL (0.55-1.02); EST Glomerular Filtration Rate 80 mL/min (>60); Est Glom Filt Rate - Afr Amer 97 mL/min (>60); Globulin 4.6 g/dL (2.2-4.2); Glucose 117 mg/dL (74-106); Potassium 3.6 mmol/L (3.5-5.1); Protein, Total 7.8 g/dL (6.4-8.2); Sodium Level 141 mmol/L (136-145); Troponin-I HS 9 pg/mL (3.0-54.0)
[2023-07-24 00:35] LABS: Absolute Neutrophil Count 8.5 X10^3/uL (2.0-7.7); Basophil# 0.07 X10^3/uL; Basophil% 0.6 % (0-1); Eosinophil# 0.11 X10^3/uL; Hematocrit 45.4 % (37-47); Hemoglobin 14.3 g/dL (12.0-15.0); Lymphocyte % 14.3 % (19-41); Mean Corp Hgb Conc 31.5 g/dL (32-36); Mean Corpuscular Hgb 27.5 pg (27.0-32.0); Mean Corpuscular Volume 87.3 fL (81-99); Monocyte# 0.84 X10^3/uL; Monocyte% 7.5 % (0-10); NRBC Flagged by Analyzer 0 % (0-5); Neutrophil # 8.45 X10^3/uL (2.7-7.7); Neutrophil % 75.5 % (47-70); Platelet Count 231 K/mm3 (150-450); RBC Distribution Width CV 13.7 % (11.6-14.6); RBC Distribution Width SD 43.8 fl (35.1-43.9); White Blood Count 11.2 K/mm3 (4.4-11.0)
--- NOTE | 2023-07-24 00:47 | EDS_ITS ---
HPI History of Present Illness Chief Complaint: Edema Narrative Narrative: 73-year-old female past medical history of hypertension, atrial fibrillation, presents with bilateral leg swelling that she has had for over a month if not longer. She states she is unable to get compression stockings secondary to the expense. She denies any chest pain or shortness of breath. She comes to the emergency department with her son because they state that she was too weak to even walk with her walker, or get up and go to the bathroom today. She is having pain in her legs and increased swelling. She does take furosemide on a daily basis this. She presents to the emergency department mainly wanting to know if there is anything else to do for her increasing leg swelling and pain. [facility] Medical History Anxiety Atrial fibrillation Chronic pain Depression Diabetes Essential hypertension Non-rheumatic mitral regurgitation Non-rheumatic tricuspid valve insufficiency Non-smoker Pure hypercholesterolemia Sleep apnea Type 2 diabetes mellitus Home Medications metformin 500 mg tablet 500 mg PO DINNER 07/25/18 [History Last Taken 12/09/20] lisinopril 20 mg tablet 20 mg PO DAILY 10/15/20 [History Last Taken 12/10/20] apixaban 5 mg tablet (Eliquis) 5 mg PO BID #60 tabs 12/03/20 [Rx Last Taken 12/10/20] furosemide 20 mg tablet 20 mg PO DAILY #180 tabs 12/26/20 [Rx Last Taken Unknown] digoxin 250 mcg (0.25 mg) tablet 250 mcg PO DAILY #30 tabs 01/17/21 [Rx Last Taken Unknown] diltiazem HCl 120 mg capsule,extended release 24 hr 120 mg PO DAILY #30 caps 01/17/21 [Rx Last Taken Unknown] potassium chloride 20 mEq tablet,extended release 20 meq PO DAILY 05/07/21 [History Last Taken Unknown] metoprolol tartrate 100 mg tablet 100 mg PO BID #180 tabs 01/13/22 [Rx Last Taken Unknown] Allergy/AdvReac Type Severity Reaction Status Date / Time No Known Allergies Allergy Verified 07/23/23 22:16 Family History Mother Diabetes Hypertension Father Hypertension Surgical History History of cardioversion (~11/12/20) History of hysterectomy Social History Smoking Status: Never smoker alcohol intake: never substance use type: does not use caffeine: Yes ROS ROS ED ROS Narrative Constitutional: No fever, no chills. Generalized weakness. HEENT: No sore throat. No neck pain. No loss of vision. No rhinorrhea. Cardiovascular: No chest pain. No palpitations. Bilateral pedal edema. Respiratory: No cough, no shortness of breath. Abdominal: No abdominal pain. No nausea. No vomiting. Genitourinary: No dysuria. No hematuria. Musculoskeletal: No myalgias. Bilateral leg pain. Neurologic: No headaches. No dizziness. No lightheadedness. Skin: No rash. No change in color. Psychiatric: No depression. No anxiety. EXAM Physical Exam Narrative Exam Narrative: Afebrile. Vital signs noted. HEENT: Normocephalic. Atraumatic. PERRL, EOMI. Neck soft and supple. No point tenderness or step off. Cardiovascular: Regular rate and rhythm. No murmurs, rubs, or gallops appreciated. Respiratory: No tachypnea. Lungs clear to auscultation bilaterally. Gastrointestinal: Abdomen soft, nontender, with normoactive bowel sounds. No rebound or guarding. Neurological: Awake. Alert. Nonfocal, nonlateralizing. Skin: No rash. Normal color. No pallor. Musculoskeletal: Bilateral symmetric pedal edema. Full range of motion extremities. Const Vital Signs: 07/23/23 22:13 07/24/23 00:00 Temperature 97.6 F L Temperature Source Temporal Pulse Rate 60 Respiratory Rate 18 Respiratory Effort Normal Non-Labored Blood Pressure 157/72 H Blood Pressure Mean 100 Pulse Ox 96 Oxygen Delivery Method Room Air MDM MDM MDM Narrative Medical decision making narrative: In the differential diagnosis is congestive heart failure versus chronic lymphedema. Comprehensive workup was pursued. EKG was obtained and interpreted by myself independently as rate controlled atrial fibrillation at 81 bpm without other ectopy or acute ST changes. No STEMI. I reviewed her laboratory work and she has normal white count/slightly elevated at 11.2, hemoglobin normal at 14.3, platelet count normal at 231. Electrolyte panel is grossly unremarkable except for glucose elevated at 117 with a normal anion gap of 6. LFTs are grossly unremarkable and normal at 20 and 23 for her AST and ALT respectively. High- sensitivity troponin is 9. BNP is slightly elevated at 230. Chest x-ray 1 view interpreted by myself shows no evidence of CHF or cephalization, no pneumonia or pneumothorax. I reviewed the radiology report which confirms my independent interpretation. At this point in time, after lengthy discussion with the patient and her son, she states she does not want to be admitted, and does not need placement for her weakness and bilateral leg pain. She would like to be discharged. I did offer her Nik wraps for her legs because she states that she cannot obtain compression stockings but she states she has tried that and does not like that. She was told to elevate her legs and follow-up with her primary care provider as she may need an increase in her furosemide. I feel she can be discharged safely home with follow-up. Additionally, patient wants to be discharged. Disposition is discharged home in stable condition. History & Record Review Discussion w/independent historian: Patient and Family Additional record(s) reviewed:: Prior ED visit and Prior labs Lab Data Attestation: I reviewed the patient's lab results. Labs: Laboratory Results - last 24 hr 07/24/23 00:01 WBC 11.2 H RBC 5.20 Hgb 14.3 Hct 45.4 MCV 87.3 MCH 27.5 MCHC 31.5 L RDW Std Deviation 43.8 RDW Coeff of Callum 13.7 Plt Count 231 MPV 10.0 Immature Gran % (Auto) 1.100 H Neut % (Auto) 75.5 H Lymph % (Auto) 14.3 L [place] % (Auto) 7.5 Eos % (Auto) 1.0 Baso % (Auto) 0.6 Absolute Neuts (auto) 8.5 H Absolute Lymphs (auto) 1.60 Nucleated RBC % 0 Sodium 141 Potassium 3.6 Chloride 106 Carbon Dioxide 29.0 Anion Gap 6 BUN 16 Creatinine 0.75 Est GFR (MDRD) Af Amer 97 Est GFR (MDRD) Non-Af 80 BUN/Creatinine Ratio 21.2 H Glucose 117 H Calcium 8.4 L Total Bilirubin 0.50 AST 20 ALT 23 Alkaline Phosphatase 113 Troponin I High Sens 9 B-Natriuretic Peptide 230.4 H Total Protein 7.8 Albumin 3.2 Globulin 4.6 H Albumin/Globulin Ratio 0.7 L Radiography Diagnostic Testing: Clinical Impression(s) from Imaging Studies Chest X-Ray 07/23/23 00:10 IMPRESSION: No acute findings in the chest. Electronically Signed: Cecil Butterfield MD at 0:33 EST , Discharge Plan Triage Chief Complaint: Edema ED Provider: Cliff Jimenez Dx/Rx/DC Orders Clinical Impression: Atrial fibrillation, Pedal edema Instructions: ED Peripheral Edema, Bilateral, ED Lymphedema Prescriptions: No Action Eliquis 5 mg tablet 5 mg PO BID Qty: 60 11RF potassium chloride 20 mEq tablet extended release 20 meq PO DAILY metformin 500 MG tablet 500 mg PO DINNER lisinopril 20 mg tablet 20 mg PO DAILY Patient Comments: Take 1 tablet by mouth once daily. furosemide 20 mg tablet 20 mg PO DAILY Qty: 180 3RF digoxin 250 mcg (0.25 mg) tablet 250 mcg PO DAILY Qty: 30 12RF Rx Instructions: HOLD if HR less than 60 bpm diltiazem HCl 120 mg capsule,extended release 24hr 120 mg PO DAILY Qty: 30 12RF metoprolol tartrate 100 mg tablet 100 mg PO BID Qty: 180 3RF Primary Care Provider: Deidre Terrell Referrals: Deidre Terrell MD [Primary Care Provider] - As soon as possible Activity Restrictions/Additional Instructions: Elevate your legs as much as possible. Disposition Disposition: Home, Self Care
[2023-07-24 01:03] VITALS: PULSE 79; RESP 15; O2SAT 98
== END 2023-07-24 01:05 | disposition home or self-care (01) ==
PROVIDERS: Emergency Provider Emergency Medicine; PCP Internal Medicine; Visit Provider Emergency Medicine
DX: I48.91 Unspecified atrial fibrillation (principal); E11.9 Type 2 diabetes mellitus without complications; R60.0 Localized edema; G47.30 Sleep apnea, unspecified
CPT/HCPCS: 71045; 80053; 83880; 84484; 85025; 93005; 99283; A4216

== ENCOUNTER 2023-08-18 09:40 | Outpatient (RCR) | payer MEDICARE, OTHER, SELFPAY ==
--- NOTE | 2023-08-18 13:45 | HP.OTEVAL ---
Patient's Visit Information Visit Information Visit Information: GANGA BRUCE is a 73 year old F, referred to Occupational Therapy by [facility], with a diagnosis of LE lymphedema. Date of Evaluation: 08/18/23 Occupational Therapist: DASIA Walton/Adam, CHT Subjective Subjective: This 73 year old female was seen for OT eval with dx of bilateral LE edema. Pt states she does not know when her legs started swelling- states right started and now her left leg is swelling. pt states she has tried to massage her legs, pt states she has compression socks on order but has not been able to use the much as they get lost in the washer- pt states she has a wedge pillow and has trouble using it the entire time she sleeps. pt states she takes a water pill one x a day. pt states she is unsure what compression class they are. pt states she remembers going to the hospital due to her legs swelling and seeping- states they did take a lot of fluid off of her at that time- pt is unsure of when this was. pt does admit she walks in her home with rollator due to leg weakness and frequent falls. pt arrives today with straight cane for ambulation. pt states she does have complicated cardiac health and has been dx with CHF. pt would like to know what she can do to decrease her edema. Lymphedema (Circumferential Measure) Mid-foot: right 33cm left 32cm Ankle: right 33cm left 31cm Lower calf: right 36cm left 33cm Largest calf: right 46cm left 46cm Below knee: right 46cm left 42cm Lower Limb Functional Index Lower Extremity Functional Score: 9 Goals Goal: Patient will demonstrate a 20% reduction in edema by discharge: Yes Goal: Patient will demonstrate adequate knowledge of self-massage by the end of the second week.: Yes Goal: Patient will demonstrate adequate knowledge of skin care and precautions by the end of the first week.: Yes Goal: Patient will select an appropriate compression garment and demonstrate adequate knowledge of correct donning technique, care and wearing schedule by discharge.: Yes Goal: Patient will voice understanding of need to replace compression garment every four to six months by discharge.: Yes Rehabilitation General Assessment: pt demo with bilateral LE edema limiting pts IND with ambulation and self care. Pt demo need for ed. and understanding of her dx and life long mtg of edema. pt would benefit from skilled OT services 2-3 visits to ed. pt on use of compression garments, lymphedema exercise as well as self manual lymph massage. Today therapist ed. pt on compression socks 20-30mmHg and use of Velcro closure device to assist in LE edema mtg. pt demo understanding and agree to POC. Rehabilitation Potential: Questionable Anticipated Interventions Anticipated Interventions: Education re Diagnosis, Education re Life-long lymphedema Management, Education re Skin Care and Precautions, Education re Self Massage Techniques, Education re Correct Donning Tech,Care&Wearing Sched Comp Garments, Caregiver Training and Home Program Visit Plan Frequency: Every Other Week Duration: 2 Weeks TEXT: Thank you for the opportunity to evaluate your patient. For Medicare and Medicare HMO plans, please review the plan of care and approve it. It will need to be FAXED BACK to us at [phone] for Medicare purposes. Please let me know if there are questions or concerns regarding this plan of care. Physician Signature: Date:
== END 2023-08-18 19:00 | disposition home or self-care (01) ==
LOC: OT 09:40
PROVIDERS: PCP Internal Medicine; Visit Provider Clinical Nurse Specialist
DX: R60.0 Localized edema (principal); R29.898 Other symptoms and signs involving the musculoskeletal system; M79.604 Pain in right leg; M79.605 Pain in left leg
CPT/HCPCS: 97166

== ENCOUNTER → 2024-05-25 | Outpatient (CLI) | payer MEDICARE, OTHER, SELFPAY ==
--- NOTE | 2024-05-25 13:35 | ECHOD_ITS ---
Reason For Study: ATRIAL FIBRILLATION Procedure This was a 2D Doppler, Color Flow transthoracic echocardiogram. Exam performed in department. Left Ventricle Normal left ventricle. Mild concentric left ventricular hypertrophy. Left ventricular systolic function is normal. The left ventricular ejection fraction is 60 %. No regional wall motion abnormalities noted. Right Ventricle Normal RV size. Normal systolic function. Atria The left atrium is moderately enlarged. Normal right atrium. Mitral Valve Normal mitral valve. Tricuspid Valve Normal tricuspid valve. Mild to moderate (1-2+) tricuspid valve insufficiency. Pulmonary artery systolic pressure is 52 mmHg. Aortic Valve Trisinus/trileaflet aortic valve. Mild focal aortic valve calcification. Pulmonic Valve Normal pulmonic valve. Great Vessels Mild to moderately dilated aortic root. The pulmonary artery is normal size. and partially collapses. Pericardium/Pleural No pericardial effusion. MMode/2D Measurements & Calculations LVIDd: 4.2 cm IVSd: 1.2 cm LVOT diam: 1.9 cm LVIDs: 2.8 cm LVPWd: 1.3 cm LVOT area: 2.8 cm2 RVDd: 3.6 cm FS: 34.6 % asc Aorta Diam: 4.1 cm LAV(MOD-bp): 84.3 ml LVAd ap4: 20.3 cm2 LAV(MOD-bp) Indexed: 35.8 ml/m2 LVLd ap4: 6.3 cm LAV(MOD-sp2): 79.9 ml EDV(MOD-sp4): 54.4 ml LAV(MOD-sp4): 75.2 ml EDV(sp4-el): 56.0 ml LVAs ap4: 11.3 cm2 LVLs ap4: 5.3 cm ESV(MOD-sp4): 20.7 ml ESV(sp4-el): 20.5 ml EF(MOD-sp4): 61.9 % EF(sp4-el): 63.3 % LVAd ap2: 20.9 cm2 SV(MOD-sp4): 33.7 ml SV(MOD-sp2): 32.3 ml LVLd ap2: 6.9 cm EDV(MOD-sp2): 53.6 ml EDV(sp2-el): 53.8 ml LVAs ap2: 12.0 cm2 LVLs ap2: 5.9 cm ESV(MOD-sp2): 21.3 ml ESV(sp2-el): 20.6 ml EF(MOD-sp2): 60.2 % SV(sp4-el): 35.4 ml Ao sinus diam: 3.[address] Junction: 2.8 cm LA dimension(2D): 5.1 cm LA A4 area: 26.9 cm2 RA A4 area: 20.8 cm2 TAPSE: 1.7 cm Time Measurements MV dec time: 0.13 sec Doppler Measurements & Calculations MV E max zoran: 126.4 cm/sec Lat Peak E' Zoran: 10.4 cm/sec Med Peak E' Zoran: 6.4 cm/sec E/E' lat: 12.2 E/E' med: 19.7 Ao V2 max: 160.5 cm/sec LV V1 max: 98.3 cm/sec SV(LVOT): 62.7 ml Ao max P.3 mmHg LV V1 max P.9 mmHg Ao V2 mean: 112.5 cm/sec LV V1 mean P.2 mmHg Ao mean P.6 mmHg LV V1 mean: 68.2 cm/sec Ao V2 VTI: 28.6 cm LV V1 VTI: 22.1 cm AV (velocity ratio): 0.77 ASHLYN(I,D): 2.2 cm2 ASHLYN(V,D): 1.7 cm2 PA V2 max: 89.9 cm/sec TR max zoran: 352.6 cm/sec PA max PG (full): 0.75 mmHg TR max P.7 mmHg ECHO/Echo Complete Interpretation Summary Normal left ventricle. Left ventricular systolic function is normal. The left ventricular ejection fraction is 60 %. Mild concentric left ventricular hypertrophy. Mild to moderately dilated aortic root. Pulmonary artery systolic pressure is 52 mmHg. Ordering Physician: Alejandro Gilmore Referring Physician: Alejandro Gilmore Performed By: Makayla Em RDCS
== END | disposition home or self-care (01) ==
LOC: CVS 13:32
PROVIDERS: PCP Family Medicine; Referring Provider Family Medicine; Visit Provider Family Medicine
DX: R06.02 Shortness of breath (principal)
CPT/HCPCS: 93306

== ENCOUNTER 2024-06-07 09:23 | Outpatient (RCR) | payer MEDICARE, OTHER, SELFPAY ==
--- NOTE | 2024-06-07 13:42 | HP.OTEVAL_ITS ---
Patient's Visit Information Visit Information Visit Information: GANGA BRUCE is a 74 year old F, referred to Occupational Therapy by Dr. Alejandro Gilmore, , with a diagnosis of lymphedema. Date of Evaluation: 06/07/24 Occupational Therapist: Odalis Stewart, NICOLASR/Adam, CHT Subjective Subjective: This 74 year old female was seen for OT eval with dx of Lymphedema of BLE. Pt states she was seen by Dr. Gilmore in on May.23 and due to swelling he rec'd lymphedema garments. pt states she has used compression socks from [employer]. (has them on but they are inside out and she cut the toes out because they were to tight) pt states she typically has received her compression socks from [employer] but they tend to dig into her legs. pt states she has been dealing with getting compression socks 5 years over the last 5 years. pt states she has trouble with getting a good fit. pt live alone and has difficulty with reaching her feet pt lomeli shave Velcro shoes she received from her foot dr. pt states she sleeps in a bed and legs are smaller in am pt arrives with soft splint on due to fall last night and she fx her hand. pt has quad cane and states she typically will ambulate short distances only. Pt states she had friend tractor sweeper driver her because she had broken her hand ( Use of hospital van transportation) pt is on water pill she takes. Pt poor historian and would not answer questions directly. Lymphedema (Circumferential Measure) Mid-foot: right 21cm left 22cm Ankle: right 27cm left 27cm Lower calf: right 29cm left 29cm Largest calf: right 44cm left 44cm Below knee: right 41cm left 38cm Lower Exremity Comments: pt demo with mild swelling this am. ( pt does states legs are more swollen in pm) pt states she was worried she would have to have her leg cut off due to swelling. pt skin looks good ( no blisters or seeping) Lower Limb Functional Index Lower Extremity Functional Score: 20 Goals Goal: Patient will demonstrate a 20% reduction in edema by discharge: Yes Goal: Patient will demonstrate adequate knowledge of skin care and precautions by the end of the first week.: Yes Goal: Patient will demonstrate adequate knowledge of therapeutic exercises by discharge.: Yes Goal: Patient will select an appropriate compression garment and demonstrate adequate knowledge of correct donning technique, care and wearing schedule by discharge.: Yes Goal: Patient will voice understanding of need to replace compression garment every four to six months by discharge.: Yes Rehabilitation General Assessment: pt demo with mild edema of bilateral LE. Pt demo need for skilled OT services 2-3 visits to ensure pts understanding of exercise that stimulate circulation, skin care and beneficial ex. to stimulate circulation. As well as getting compression socks 20-30 mmHg. pt states she is not happy with [employer] as they tend to hurt her legs- therapist ed. a number of brands pt can look at to determine what she would like- ( leaning more toward cotton based vs hose based) as this may be easier to get on. Pt was appreciative of information and verbalized pt would get with family to check out options of compression socks with her. Once pt get compression socks pt is to return to clinic as needed, initiate Ex. pt demo understanding and agree to POC. Rehabilitation Potential: Questionable Anticipated Interventions Anticipated Interventions: Education re Life-long lymphedema Management, Education re Skin Care and Precautions, Education re Correct Donning Tech,Care&Wearing Sched Comp Garments and Home Program Visit Plan General Plan: pt to get 20-30 mmHg compression socks ( wants cotton) initiate lymph ex. move around every 45 min to increase fluid circulation and muscle strength TEXT: Thank you for the opportunity to evaluate your patient. For Medicare and Medicare HMO plans, please review the plan of care and approve it. It will need to be FAXED BACK to us at [phone] for Medicare purposes. Please let me know if there are questions or concerns regarding this plan of care. Physician Signature:__ Date:
== END 2024-06-07 19:00 | disposition home or self-care (01) ==
LOC: OT 09:23
PROVIDERS: PCP Family Medicine; Referring Provider Family Medicine; Visit Provider Family Medicine
DX: I89.0 Lymphedema, not elsewhere classified (principal)
CPT/HCPCS: 97166

== ENCOUNTER → 2024-07-26 | Outpatient (CLI) | payer MEDICARE, SELFPAY ==
[2024-07-26 15:26] LABS: Absolute Lymphocyte Count 1.56 X10^3/uL (0.83-4.51); Absolute Neutrophil Count 7.1 X10^3/uL (2.0-7.7); Basophil# 0.04 X10^3/uL; Basophil% 0.4 % (0-1); Hematocrit 46.8 % (37-47); Hemoglobin 14.6 g/dL (12.0-15.0); Lymphocyte # 1.56 X10^3/ul (0.83-4.51); Lymphocyte % 16.2 % (19-41); Mean Corp Hgb Conc 31.2 g/dL (32-36); Mean Corpuscular Hgb 27.8 pg (27.0-32.0); Mean Platelet Vol. 10.7 fl (6.2-12.0); Monocyte# 0.76 X10^3/uL; Monocyte% 7.9 % (0-10); NRBC Flagged by Analyzer 0 % (0-5); Neutrophil # 7.12 X10^3/uL (2.7-7.7); Neutrophil % 74.2 % (47-70); Platelet Count 229 K/mm3 (150-450); RBC Distribution Width CV 13.7 % (11.6-14.6); RBC Distribution Width SD 44.3 fl (35.1-43.9); Red Blood Count 5.26 M/mm3 (4.2-5.4); White Blood Count 9.6 K/mm3 (4.4-11.0)
[2024-07-26 15:49] LABS: ALB/GLOB Ratio 0.8 RATIO (0.9-2.4); AST(SGOT) 5 U/L (15-37); Alanine Aminotransfer ALT/SGPT 26 U/L (13-56); Albumin, Serum 3.5 g/dL (3.2-5.0); Alkaline Phosphatase 118 U/L (45-117); Anion Gap 7 (5-15); BUN 17 mg/dL (7-18); Calcium,Total 9.3 mg/dL (8.5-10.1); Chloride 106 mmol/L (98-107); Cholesterol 209 mg/dL (200); EST Glomerular Filtration Rate 66 mL/min (>60); Est Glom Filt Rate - Afr Amer 79 mL/min (>60); Globulin 4.4 g/dL (2.2-4.2); Glucose 176 mg/dL (74-106); High Density Lipoprotein 35 mg/dL; Potassium 3.2 mmol/L (3.5-5.1); Protein, Total 7.9 g/dL (6.4-8.2); Sodium Level 141 mmol/L (136-145); Triglycerides 197 mg/dL; Very Low Density Lipoprotein 39 mg/dL (5-40)
== END | disposition home or self-care (01) ==
LOC: BIMLAB 13:45
PROVIDERS: PCP Family Medicine; Referring Provider Family Medicine; Visit Provider Family Medicine
DX: I11.0 Hypertensive heart disease with heart failure (principal); I50.9 Heart failure, unspecified; I48.91 Unspecified atrial fibrillation
CPT/HCPCS: 36415; 80053; 80061; 85025

== ENCOUNTER 2025-01-11 07:21 | Outpatient (RCR) | payer MEDICARE, OTHER, SELFPAY ==
[2025-01-11 13:11] VITALS: BP 152/74; RESP 20; TEMP 36.1
--- NOTE | 2025-01-11 14:15 | HP.PCM_ITS ---
History of Present Illness Date of Service: 01/11/25 Chief Complaint: Bilateral davey ulceration and Bilateral lower extremity edema History of Wound: Claudia Smith is a 74 y/o female who presents to the wound center today as referred by Dr. Keenan and Dr. Gilmore for management of her bilateral lower extremity edema with associated bilateral davey ulcerations. She is a relatively poor historian. She cannot tell me how long these wounds have been here or how long she has had this edema, she states she tries not to look at them when referring to her legs. She states that for wound care she has been following restorationism methods and when asked for further details just says she is washing them with soap, water, and then covering with socks. She is not wearing any compression, reports that she has not been able to find a pair that suits her. She is diabetic, appears to have fair control with last A1c 6.7 on 01/02/2025. She relies on transportation services to get to appointments. 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 Adrenal mass Lymphedema Paresthesia of hand, bilateral Neuropathy Congestive heart failure Depression Diabetes Chronic pain Non-smoker Sleep apnea Non-rheumatic tricuspid valve insufficiency Non-rheumatic mitral regurgitation Anxiety Pure hypercholesterolemia Essential hypertension Type 2 diabetes mellitus Atrial fibrillation Home Medications ?Medication ?Instructions ?Recorded ?Last Taken ?Type digoxin 250 mcg (0.25 mg) tablet 250 mcg PO DAILY #30 tabs 01/17/21 Unknown Rx diltiazem HCl 120 mg 120 mg PO DAILY #30 caps 04/08 Unknown Rx capsule,extended release 24 hr metoprolol tartrate 100 mg tablet 100 mg PO BID #180 t abs 06/28/24 Unknown Rx apixaban 5 mg tablet (Eliquis) 5 mg PO BID #60 tabs Unknown Rx potassium chloride 10 mEq 10 meq PO QDAY #90 tabs 07/16 03/08 Unknown Rx tablet,extended release furosemide 20 mg tablet 20 mg PO DAILY #180 tabs Unknown Rx metformin 500 mg tablet 500 mg PO DINNER #90 tabs Unknown Rx lisinopril 20 mg tablet 20 mg PO DAILY #90 tabs 03/09 Unknown Rx gabapentin 100 mg capsule 100 mg PO QDAY #90 caps 11/14 02/07 Unknown Rx YENI Lucas #1 ea 12/12/24 Unknown Rx Allergy/AdvReac Type Severity Reaction Status Date / Time aspirin AdvReac Other Verified 01/02/25 15:43 Family History Mother Breast cancer Hypertension Father Colon cancer Alzheimer's disease Surgical History History of surgery History of colonoscopy History of hysterectomy Social History adopted: No current occupational status: retired pets and animals: No history of recent travel: No Smoking Status: Never smoker alcohol intake: current details: medicinal use in the winter time any kind as long as it has alcohol in it substance use type: does not use caffeine: Yes (mountain Dew and Faygo 1 per day ) what type of physical activity do you participate in: none seatbelt use: sometimes do you feel safe at home: Yes Vital Signs Vital Signs Vital Signs: 01/11/25 13:11 Temperature 97 F L Temperature Source Temporal Respiratory Rate 20 H Blood Pressure 152/74 H Blood Pressure Mean 100 Blood Pressure Source Monitor Blood Pressure Position Sitting Blood Pressure Location Right Forearm Physical Exam Const alert, oriented x3 and no apparent distress HEENT normocephalic and head/scalp atraumatic Nose: external nose normal Eyes General Eye: normal appearance of both eyes Neck General: normal visual inspection and trachea midline Resp Effort and Inspection: able to speak in complete sentences; Negative for labored, grunting or stridor Extremity Extremity Narrative: BLE edema with circumference measurements as follows: Right calf: 58cm Right ankle: 49 cm Left calf: 48 cm Left ankle: 34 cm Skin Wounds: wounds noted Wound Narrative: Large, superficial wound to the R davey with irregular borders and associated maceration. The wound base is pink with moderate slough. No surrounding erythema, foul odor, fluctuance/induration. Mild serous drainage. Small, superficial circular wound with defined borders, pink wound base, no significant slough or nonviable tissue. No surrounding erythema, foul odor, fluctuance/induration. Mild serous drainage. Neuro oriented x3, moves all extremities and no focal motor deficits Speech: speech normal Psych activity/motor behavior normal Appearance: grossly normal Speech: normal speech Debridement Note Debridement Note No debridement was completed: No debridement was completed today Post-Debridement Measurements and Additional Note: Post-Debridement Measurements/Treatment - Nurse 1 - General Ulcer Assessment Start: 01/11/25 08:24 Freq: Status: Active Protocol: SAMIR Activity Type Activity Date Activity User E-sign Co-sign Detail Recorded Client Recorded Date Recorded By Document 01/11/25 13:11 RI [id number] 01/11/25 13:27 RI 01/11/25 13:11 - Today's Visit Information Type of service Initial Visit Arrival Mode Ambulatory,Cane Accompanied by self Patient Identification Verified (Name & Yes ) Safety Precautions Fall Prevention Vital Signs Temperature (97.8 F-99.1 F) 97 F L Temperature Source Temporal Pulse Location Monitor Respiratory Rate (12-18) 20 H Respiratory rate source Observation Blood Pressure (90/60-120/80) 152/74 H Blood Pressure Mean 100 Source Monitor Position Sitting Blood Pressure Location Right Forearm History Since Last Visit- (Skip if this is Patient's initial visit) Left Footwear Slipper Right Footwear Slipper Pain Scale: 0-10 Numeric Is Patient Pain Free? Yes [facility] Nurse 1 - General Ulcer Measurement Start: 01/11/25 08:24 Freq: Status: Active Protocol: Activity Type Activity Date Activity User E-sign Co-sign Detail Recorded Client Recorded Date Recorded By Document 01/11/25 13:11 RI [id number] 01/11/25 13:27 RI 01/11/25 13:11 Wound Center Nurse 1 #2 Right Lower Davey -Current Size (cm) - Length 7.5 -Current Size (cm) - Width 4.0 -Current Size (cm) - Depth 0.1 -Total Square Cm 30.00 -Date of Last Picture (Recall this 01/11/25 field) -Photo Taken Yes -Epithelialization Small 1-33% -Tunneling No -Undermining/Tunneling No -Circular Undermining No -Exudate Amt Medium -Exudate Type Serous -Wound Margin Flat & Intact -Granulation Amt Medium (34-66%) -Granulation Quality Pale,[place] -Necrosis Amt Medium (34-66%) -Texture (Violeta-wound Skin Appearance) Assessed -Moisture (Violeta-wound Skin Appearance) Assessed -Color (Violeta-wound Skin Appearance) Assessed, Erythema, Hemosiderin Staining -Temperature (Violeta-wound Skin No Abnormality Appearance) (Pt Warm) -Tenderness on Palpation (Violeta-wound No Skin Appearance) -Ulcer Cleansing Soap and Water -Foul Odor after Cleansing No -Anesthetic Used 5% Lidocaine Gel #1 Left Lower Davey -Current Size (cm) - Length 1 -Current Size (cm) - Width 0.8 -Current Size (cm) - Depth 0.1 -Total Square Cm 0.8 -Date of Last Picture (Recall this 01/11/25 field) -Photo Taken Yes -Tunneling No -Undermining/Tunneling No -Circular Undermining No -Exudate Amt Medium -Exudate Type Serosanguineous -Wound Margin Flat & Intact -Granulation Amt Large (67-100%) -Granulation Quality Pale,[place] -Necrosis Amt Small (1-33%) -Texture (Violeta-wound Skin Appearance) Assessed -Moisture (Violeta-wound Skin Appearance) Assessed -Color (Violeta-wound Skin Appearance) Assessed -Temperature (Violeta-wound Skin No Abnormality Appearance) (Pt Warm) -Tenderness on Palpation (Violeta-wound No Skin Appearance) -Ulcer Cleansing Soap and Water -Foul Odor after Cleansing No -Anesthetic Used 5% Lidocaine Gel Right Calf (cm) 58 Right Ankle (cm) 49 Left Calf (cm) 48 Left Ankle (cm) 34 WC - Nurse 2 - General Ulcer CM Notes Start: 01/11/25 08:24 Freq: Status: Active Protocol: Activity Type Activity Date Activity User E-sign Co-sign Detail Recorded Client Recorded Date Recorded By Document 01/11/25 13:45 [id number] 01/11/25 13:57 GM 01/11/25 13:45 Wound Center Nurse 2 #2 Right Lower Davey -Time 13:45 -Correct Patient Yes -Correct Side, Site, Position Yes -Correct Procedure No -Procedure Performed No -Tunneling No -Undermining/Tunneling No -Circular Undermining No -Wound/Ulcer Outcome Not Healed -Ulcer Cleansing Not Cleansed -Foul Odor after Cleansing No -Bioengineered Tissue No -Bleeding Controlled with NA -Offloading No #1 Left Lower Davey -Time 13:45 -Correct Patient Yes -Correct Side, Site, Position Yes -Correct Procedure No -Procedure Performed No -Tunneling No -Undermining/Tunneling No -Circular Undermining No -Wound/Ulcer Outcome Not Healed -Ulcer Cleansing Not Cleansed -Foul Odor after Cleansing No -Bioengineered Tissue No -Bleeding Controlled with NA -Offloading No Pain Scale: 0-10 Numeric Is Patient Pain Free? Yes Charges/Coding Visit Charges Office Visits / Consults: 90301 OV L3 New 30min Assessment/Plan Assessment/Plan (1) Ulcer of right lower extremity, limited to breakdown of skin: CODE(S): L97.911 - Non-pressure chronic ulcer of unspecified part of right lower leg limited to breakdown of skin PLAN: nonpressure chronic ulcer of the right anterior davey limited to breakdown of the skin (2) Ulcer of left lower extremity, limited to breakdown of skin: CODE(S): L97.921 - Non-pressure chronic ulcer of unspecified part of left lower leg limited to breakdown of skin PLAN: nonpressure chronic ulcer of the left anterior davey limited to breakdown of the skin (3) Bilateral lower extremity edema: CODE(S): R60.0 - Localized edema (4) Lymphedema: CODE(S): I89.0 - Lymphedema, not elsewhere classified (5) Type 2 diabetes mellitus: CODE(S): E11.9 - Type 2 diabetes mellitus without complications QUALIFIERS: Diabetes mellitus terminal operations manager insulin use: without prison use Diabetes mellitus complication status: without complication Qualified Code(s): E11.9 - Type 2 diabetes mellitus without complications (6) Morbid obesity with BMI of 60.0-69.9, adult: CODE(S): E66.01 - Morbid (severe) obesity due to excess calories; Z68.44 - Body mass index [BMI] 60.0-69.9, adult PLAN: Plan I discussed with patient that I believe the primary tram driver of her current wounds is her significant lower extremity edema; her diabetes likely complicates healing as well. We discussed that managing her edema through compression, elevation, and regular exercise will be very important to support wound healing. Her right davey ulceration did have moderate associated slough, I recommended debridement but patient declined. Left davey ulceration was without any significant slough. I advise Unna boot application bilaterally for both wound care and edema management. After discussion, patient was ultimately agreeable to this. She is instructed to keep these clean and dry at all times. Will plan for a nurse visit Wednesday/Wednesday to have the Unna boot changed group home through the week. She is instructed to elevate her legs at all times of rest, ideally at/above the level of the heart. She is advised to avoid prolonged periods of sitting/standing and to participate in frequent ambulation throughout the day. Weight loss would also help to improve her edema. Can consider venous reflux study in the future to evaluate for venous insufficiency which could be contribu ting. She is encouraged to continue with good glycemic control. Return in 1 week, sooner as needed.
--- NOTE | 2025-01-12 13:05 | WC ---
PHOTO 01/11/25 LEFT LOWER ASIF
--- NOTE | 2025-01-12 13:39 | WC ---
PHOTO 01/11/25 LOWER ASIF
== END 2025-01-13 23:59 | disposition home or self-care (01) ==
LOC: WC 07:21
PROVIDERS: PCP Family Medicine; Referring Provider Student in an Organized Health Care Education/Training Program; Visit Provider Physician Assistant
DX: E11.622 Type 2 diabetes mellitus with other skin ulcer (principal); L97.821 Non-pressure chronic ulcer of other part of left lower leg limited to breakdown of skin; L97.811 Non-pressure chronic ulcer of other part of right lower leg limited to breakdown of skin; I11.0 Hypertensive heart disease with heart failure; I50.9 Heart failure, unspecified; I48.91 Unspecified atrial fibrillation; E66.01 Morbid (severe) obesity due to excess calories; Z68.44 Body mass index [BMI] 60.0-69.9, adult; E11.40 Type 2 diabetes mellitus with diabetic neuropathy, unspecified; E78.00 Pure hypercholesterolemia, unspecified; Z79.01 Long term (current) use of anticoagulants; R60.0 Localized edema; I89.0 Lymphedema, not elsewhere classified; Z79.899 Other long term (current) drug therapy
CPT/HCPCS: 29580; 99213; G0463

== ENCOUNTER 2025-01-25 13:30 | Outpatient (RCR) | payer MEDICARE, OTHER, SELFPAY ==
[2025-01-14 00:25] VITALS: BP 152/74; RESP 20; TEMP 36.1
[2025-01-17 13:12] VITALS: BP 179/98; PULSE 77; RESP 18; TEMP 36.3
--- NOTE | 2025-01-19 11:56 | HP.PCM_ITS ---
History of Present Illness Date of Service: 01/17/25 Chief Complaint: Bilateral pretibial ulcerations and bilateral lower extremity edema History of Wound: The patient is seen today as a courtesy to her regular Wound Center provider. The patient's history is as documented below by MUSA Oropeza: Claudia Smith is a 74 y/o female who presented to the Wound Center as referred by Dr. Keenan and Dr. Gilmore for management of her bilateral lower extremity edema with associated bilateral davey ulcerations. She is a relatively poor historian. She cannot tell me how long these wounds have been here or how long she has had this edema, she states she "tries not to look at them" when referring to her legs. She states that for wound care she has been following "church methods" and when asked for further details just says she is washing them with soap, water, and then covering with socks. She is not wearing any compression, reports that she has not been able to find a pair that suits her. She is diabetic, appears to have fair control with last A1c 6.7 on 01/02/2025. She relies on transportation services to get to appointments. [facility] Medical History History of cardioversion (~11/12/20) Chronic constipation Sepsis Ascending aorta dilatation termite control servicer current use of anticoagulant Adrenal mass Lymphedema Paresthesia of hand, bilateral Neuropathy Congestive heart failure Depression Diabetes Chronic pain Non-smoker Sleep apnea Non-rheumatic tricuspid valve insufficiency Non-rheumatic mitral regurgitation Anxiety Pure hypercholesterolemia Essential hypertension Type 2 diabetes mellitus Atrial fibrillation Home Medications Medication Instructions Recorded Last Taken Type digoxin 250 mcg (0.25 mg) tablet 250 mcg PO DAILY #30 tabs 01/17/21 Unknown Rx diltiazem HCl 120 mg 120 mg PO DAILY #30 caps 04/08 Unknown Rx capsule,extended release 24 hr metoprolol tartrate 100 mg tablet 100 mg PO BID #180 t abs 06/28/24 Unknown Rx apixaban 5 mg tablet (Eliquis) 5 mg PO BID #60 tabs Unknown Rx furosemide 20 mg tablet 20 mg PO DAILY #180 tabs Unknown Rx metformin 500 mg tablet 500 mg PO DINNER #90 tabs Unknown Rx lisinopril 20 mg tablet 20 mg PO DAILY #90 tabs 03/09 Unknown Rx gabapentin 100 mg capsule 100 mg PO QDAY #90 caps 11/14 02/07 Unknown Rx YENI Hose #1 ea 12/12/24 Unknown Rx potassium chloride 10 mEq 10 meq PO DAILY #90 TABLETS 01/19/25 Unknown Rx tablet,extended release Allergy/AdvReac Type Severity Reaction Status Date / Time aspirin AdvReac Other Verified 01/02/25 15:43 Family History Mother Breast cancer Hypertension Father Colon cancer Alzheimer's disease Surgical History History of surgery History of colonoscopy History of hysterectomy Social History adopted: No current occupational status: retired pets and animals: No history of recent travel: No Smoking Status: Never smoker alcohol intake: current details: medicinal use in the winter time "any kind as long as it has alcohol in it" substance use type: does not use caffeine: Yes (mountain Dew and Faygo 1 per day ) what type of physical activity do you participate in: none seatbelt use: sometimes do you feel safe at home: Yes Physical Exam Const alert, oriented x3 and no apparent distress Constitutional Narrative: The patient is noted to be obese. General Appearance: comfortable, well developed, uncooperative and combative Orientation / Consciousness: awake, oriented to person, oriented to place and oriented to time HEENT normocephalic and head/scalp atraumatic Head and Scalp: normal to inspection, normocephalic and atraumatic Face and Sinus: normal facial exam Nose: external nose normal External Ear: external ears normal Eyes EOMs intact bilaterally General Eye: normal appearance of both eyes Neck General: normal visual inspection and trachea midline Resp normal respiratory effort, normal air movement, no retractions and no use of accessory muscles Effort and Inspection: able to speak in complete sentences Skin Wound Narrative: A large, superficial ulceration is noted on the right pretibial surface with irregular borders. Wound margins are well beveled. There is a moderate amount of nonviable tissue and bioburden. There are areas of pink granulation tissue. Dimensions are documented elsewhere. There is no sign of infection or cellulitis. A small, superficial ulceration is noted on the left pretibial surface with fairly well-defined borders. Wound margins are well beveled and well-defined. The base of the ulceration is generally pink in appearance with evidence of granulation tissue. There is no sign of infection or cellulitis. Dimensions are documented elsewhere. Moderate swelling and edema are noted in the patient's lower extremities bilaterally. Mild peralta phlebectatica is noted bilaterally. Neuro oriented x3, CN's II-XII intact bilaterally, moves all extremities and no focal motor deficits Sensorium / Orientation: awake, alert, oriented to person, oriented to place and oriented to time Speech: speech normal Psych activity/motor behavior normal Appearance: grossly normal Speech: normal speech Debridement Note Debridement Note No debridement was completed: No debridement was completed today (The patient refused debridement.) Post-Debridement Measurements and Additional Note: Post-Debridement Measurements/Treatment WC - Nurse 1 - General Ulcer Assessment Start: 01/17/25 13:12 Freq: Status: Active Protocol: SAMIR Activity Type Activity Date Activity User E-sign Co-sign Detail Recorded Client Recorded Date Recorded By Document 01/17/25 13:12 DL [id number] 01/17/25 13:23 DL 01/17/25 13:12 WC - Today's Visit Information Type of service Follow-up Visit (Physician/LEGUILLON DEBEADER ) Arrival Mode Ambulatory,Cane Transfer Assistance None Patient Identification Verified (Name & Yes ) Patient Requires Transmission-Based No Precautions Vital Signs Temperature (97.8 F-99.1 F) 97.3 F L Temperature Source Temporal Pulse Rate (60-100) 77 Pulse Location Monitor Respiratory Rate (12-18) 18 Respiratory rate source Observation Blood Pressure (90/60-120/80) 179/98 H Blood Pressure Mean 125 Source Monitor History Since Last Visit- (Skip if this is Patient's initial visit) Have you changed medications since your No last visit? Any new allergies or adverse reactions No Had a fall/change in ADL's that may No increase risk of falls Signs or symptoms of abuse and/or No neglect since last visit Have you been in the hospital since your No last visit? Has dressing in place as prescribed Yes Has compression in place as prescribed No Has offloadiing in place as prescribed Yes Experienced any changes in pain level or No management Pain Scale: 0-10 Numeric Is Patient Pain Free? Yes MITESH - Nurse 1 - General Ulcer Measurement Start: 01/17/25 13:12 Freq: Status: Active Protocol: Activity Type Activity Date Activity User E-sign Co-sign Detail Recorded Client Recorded Date Recorded By Document 01/17/25 13:12 [email or web address] [id number] 01/17/25 13:23 DL 01/17/25 13:12 Wound Center Nurse 1 #2 Right Lower [place] -Current Size (cm) - Length 8.5 -Current Size (cm) - Width 6 -Current Size (cm) - Depth 0.1 -Total Square Cm 51.0 -Exudate Amt Medium -Exudate Type Serosanguineous -Wound Margin Distinct, Outline Attached -Granulation Amt Medium (34-66%) -Granulation Quality [place] -Necrosis Amt Medium (34-66%) -Necrotic Tissue Type Adherent Slough -Structure Exposed N/A -Texture (Violeta-wound Skin Appearance) Localized Edema ,Scarring -Moisture (Violeta-wound Skin Appearance) Weeping -Color (Violeta-wound Skin Appearance) No Abnormality -Temperature (Violeta-wound Skin No Abnormality Appearance) (Pt Warm) -Tenderness on Palpation (Violeta-wound No Skin Appearance) -Ulcer Cleansing Soap and Water -Foul Odor after Cleansing No -Anesthetic Used 4% Lidocaine Solution #1 Left Lower [place] -Current Size (cm) - Length 0.8 -Current Size (cm) - Width 0.6 -Current Size (cm) - Depth 0.1 -Total Square Cm 0.48 -Exudate Amt Small -Wound Margin Distinct, Outline Attached -Granulation Amt Small (1-33%) -Granulation Quality Red -Necrosis Amt Small (1-33%) -Necrotic Tissue Type Adherent Slough -Structure Exposed N/A -Texture (Violeta-wound Skin Appearance) Scarring -Moisture (Violeta-wound Skin Appearance) No Abnormality -Color (Violeta-wound Skin Appearance) No Abnormality -Temperature (Violeta-wound Skin No Abnormality Appearance) (Pt Warm) -Ulcer Cleansing Soap and Water -Foul Odor after Cleansing No -Anesthetic Used 4% Lidocaine Solution Right Calf (cm) 54.5 Right Ankle (cm) 34 Left Calf (cm) 49 Left Ankle (cm) 34 WC - Nurse 2 - General Ulcer CM Notes Start: 01/17/25 13:12 Freq: Status: Active Protocol: Activity Type Activity Date Activity User E-sign Co-sign Detail Recorded Client Recorded Date Recorded By Document 01/17/25 13:33 [id number] 01/17/25 13:40 01/17/25 13:33 Wound Center Nurse 2 #2 Right [place] -Time 13:33 -Correct Patient Yes -Correct Side, Site, Position Yes -Tunneling No -Undermining/Tunneling No -Circular Undermining No -Wound/Ulcer Outcome Not Healed -Ulcer Cleansing Not Cleansed -Foul Odor after Cleansing No -Bioengineered Tissue No -Bleeding Controlled with NA -Offloading No #1 Left [place] -Time 13:33 -Correct Patient Yes -Correct Side, Site, Position Yes -Correct Procedure No -Procedure Performed No -Tunneling No -Undermining/Tunneling No -Circular Undermining No -Wound/Ulcer Outcome Not Healed -Ulcer Cleansing Not Cleansed -Foul Odor after Cleansing No -Bioengineered Tissue No -Bleeding Controlled with NA -Offloading No Pain Scale: 0-10 Numeric Is Patient Pain Free? Yes - Nurse 3 - General Ulcer D/C NN Start: 01/17/25 13:12 Freq: Status: Active Protocol: Activity Type Activity Date Activity User E-sign Co-sign Detail Recorded Client Recorded Date Recorded By Document 01/17/25 13:57 [id number] 01/17/25 13:58 01/17/25 13:57 Wound Care Center Nurse 3 #2 Right Lower [place] -Primary Dressing Applied C Hydrogel -Primary Dressing Covered/Secured with Dry Gauze & Roll Gauze, Secured with Tape -Hydrogel 1 #1 Left Lower [place] -Other Dressing hydrogel -Primary Dressing Covered/Secured with Dry Gauze & Roll Gauze, Secured with Tape BLE -Tubular Bandage Double Layer -Size of Tubigrip Used Size F -Size F ($) 4 Pain Scale: 0-10 Numeric Is Patient Pain Free? Yes - Visit Discharge Discharge Condition Stable Ambulatory Status Ambulatory,Cane Medication Reconcilliation completed & No provided to patient/care provider Clinical Summary of Care Provided Yes Charges/Coding Visit Charges Office Visits / Consults: [id number] OV L4 New 45min Assessment/Plan Assessment/Plan (1) Ulcer of right lower extremity, limited to breakdown of skin: CODE(S): L97.911 - Non-pressure chronic ulcer of unspecified part of right lower leg limited to breakdown of skin (2) Ulcer of left lower extremity, limited to breakdown of skin: CODE(S): L97.921 - Non-pressure chronic ulcer of unspecified part of left lower leg limited to breakdown of skin (3) Bilateral lower extremity edema: CODE(S): R60.0 - Localized edema (4) Lymphedema: CODE(S): I89.0 - Lymphedema, not elsewhere classified (5) Type 2 diabetes mellitus: CODE(S): E11.9 - Type 2 diabetes mellitus without complications QUALIFIERS: Diabetes mellitus [facility] insulin use: without [facility] use Diabetes mellitus complication status: without complication Qualified Code(s): E11.9 - Type 2 diabetes mellitus without complications (6) Morbid obesity with BMI of 60.0-69.9, adult: CODE(S): E66.01 - Morbid (severe) obesity due to excess calories; Z68.44 - Body mass index [BMI] 60.0-69.9, adult (7) Non-rheumatic tricuspid valve insufficiency: CODE(S): I36.1 - Nonrheumatic tricuspid (valve) insufficiency (8) Non-rheumatic mitral regurgitation: CODE(S): I34.0 - Nonrheumatic mitral (valve) insufficiency (9) Essential hypertension: CODE(S): I10 - Essential (primary) hypertension (10) Ascending aorta dilatation: CODE(S): I77.810 - Thoracic aortic ectasia (11) 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 In addition, the patient suffers from chronic swelling and edema in her lower extremities. At her visit last week with MUSA Oropeza, measures were discussed with the patient regarding the appropriate management of swelling and edema in the lower extremities. The patient was instructed to elevate her lower extremities as much as possible. She was instructed to avoid prolonged idle sitting and standing. Frequent ambulation throughout the day was recommended. Weight loss was also recommended. At that time, Unna boots were applied during the patient's visit, with intent that the Unna boots would remain in place for approximately 3 to 4 days, then would be replaced. However, it has been learned that the patient unilaterally cut off the Unna boots that same day upon returning home. She now refuses to have the Unna boots applied today. The patient has also refused to undergo debridement of her ulcerations at today's visit. We have once again discussed the appropriate measures relative to the conservative management of her lower extremity swelling and edema. The patient appears somewhat confrontational and antagonistic. Thus far, it appears as though she has been noncompliant with recommended measures. We are to implement the use of collagen hydrogel topically, recommended to be applied on a daily basis. The patient has been provided materials for daily dressings and instructed in the appropriate means of application. We have dispensed and applied double Tubigrips for compression purposes. The patient has been advised to optimize her nutritional intake and her glycemic control. The patient will be reappointed in 1 week with MUSA Oropeza. Total time: 45 minutes
[2025-01-25 13:24] VITALS: BP 177/106; PULSE 92; RESP 18; TEMP 36.6
--- NOTE | 2025-01-25 14:15 | PCM.WC.PN ---
History of Present Illness Date of Service: 01/25/25 Chief Complaint: Bilateral pretibial ulcerations and bilateral lower extremity edema History of Wound: The patient is seen today as a courtesy to her regular Wound Center provider. The patient's history is as documented below by MUSA Oropeza: Claudia Smith is a 74 y/o female who presented to the Wound Center as referred by Dr. Keenan and Dr. Gilmore for management of her bilateral lower extremity edema with associated bilateral davey ulcerations. She is a relatively poor historian. She cannot tell me how long these wounds have been here or how long she has had this edema, she states she "tries not to look at them" when referring to her legs. She states that for wound care she has been following "pentecostalism methods" and when asked for further details just says she is washing them with soap, water, and then covering with socks. She is not wearing any compression, reports that she has not been able to find a pair that suits her. She is diabetic, appears to have fair control with last A1c 6.7 on 01/02/2025. She relies on transportation services to get to appointments. Subjective Subjective Patient returns today for management of her bilateral lower extremity edema and ulcerations. She remains somewhat antagonistic and resistant to recommendations regarding wound care and edema management. I reviewed notes from her courtesy visit with Dr. Fortune, she removed the Unna boots within 24 hours of application. She was provided with new Tubigrips last week which she is not wearing here today. She is wearing clearly old, very worn out tubigrips that she reports she already had at home. She reports that she is able to apply the tighter ones but it is difficult and it "ruins her morning" to try to get them on. She reports to be adhering to other wound care instructions. She continues to refuse debridement, she states " you want to scrape too much when it is not needed" and that the slough/dried drainage is "natural healing" and "protective". Objective Data Objective Data Vital Signs: Vital Signs Temp Pulse Resp BP 98 F 92 18 177/106 H 01/25/25 13:24 01/25/25 13:24 01/25/25 13:24 01/25/25 13:24 Charges/Coding Visit Charges Office Visits / Consults: [id number] OV L4 Est 30min Physical Exam Const alert, oriented x3 and no apparent distress HEENT normocephalic and head/scalp atraumatic Nose: external nose normal Eyes General Eye: normal appearance of both eyes Neck General: normal visual inspection and trachea midline Resp Effort and Inspection: able to speak in complete sentences; Negative for labored, grunting or stridor Extremity Extremity Narrative: BLE edema with circumference measurements as follows: Right calf: 52 cm Right ankle: 36 cm Left calf: 46.5 cm Left ankle: 33.5 cm Skin Wounds: wounds noted Wound Narrative: Large, superficial wound to the R davey with irregular borders and associated maceration. The wound base is pink with moderate slough. No surrounding erythema, foul odor, fluctuance/induration. Mild serous drainage. Small, superficial circular wound with defined borders with overlying crusting/dried drainage which is obscuring the wound bed. No surrounding erythema, foul odor, fluctuance/induration. Mild serous drainage. Neuro oriented x3, moves all extremities and no focal motor deficits Speech: speech normal Psych activity/motor behavior normal Appearance: grossly normal Speech: normal speech Debridement Note Debridement Note No debridement was completed: No debridement was completed today (patient refused) Post-Debridement Measurements and Additional Note: Post-Debridement Measurements/Treatment - Nurse 1 - General Ulcer Assessment Start: 01/17/25 13:12 Freq: Status: Active Protocol: SAMIR Activity Type Activity Date Activity User E-sign Co-sign Detail Recorded Client Recorded Date Recorded By Document 01/17/25 13:12 DL [id number] 01/17/25 13:23 DL Document 01/25/25 13:24 DL [id number] 01/25/25 13:32 DL 01/17/25 01/25/25 13:12 13:24 - Today's Visit Information Type of service Follow-up Visit Follow-up Visit (Physician/REPAIR SPECIALIST (Physician/REPAIR SPECIALIST ) ) Arrival Mode Ambulatory,Cane Ambulatory, Wheelchair Transfer Assistance None None Patient Identification Verified (Name & Yes ) Patient Requires Transmission-Based No No Precautions Safety Precautions Fall Prevention Vital Signs Temperature (97.8 F-99.1 F) 97.3 F L 98 F Temperature Source Temporal Temporal Pulse Rate (60-100) 77 92 Pulse Location Monitor Monitor Respiratory Rate (12-18) 18 18 Respiratory rate source Observation Observation Blood Pressure (90/60-120/80) 179/98 H 177/106 H Blood Pressure Mean (mm Hg) 125 129 Source Monitor Monitor History Since Last Visit- (Skip if this is Patient's initial visit) Have you changed medications since your No No last visit? Any new allergies or adverse reactions No No Had a fall/change in ADL's that may No No increase risk of falls Signs or symptoms of abuse and/or No No neglect since last visit Have you been in the hospital since your No No last visit? Has dressing in place as prescribed Yes Yes Has compression in place as prescribed No Yes Has offloadiing in place as prescribed Yes N/A Experienced any changes in pain level or No No management Pain Scale: 0-10 Numeric Is Patient Pain Free? Yes Yes WC - Nurse 1 - General Ulcer Measurement Start: 01/17/25 13:12 Freq: Status: Active Protocol: Activity Type Activity Date Activity User E-sign Co-sign Detail Recorded Client Recorded Date Recorded By Document 01/17/25 13:12 DL [id number] 01/17/25 13:23 DL Document 01/25/25 13:24 DL [id number] 01/25/25 13:32 DL 01/17/25 01/25/25 13:12 13:24 Wound Center Nurse 1 #2 Right Lower Davey -Current Size (cm) - Length 8.5 7.5 -Current Size (cm) - Width 6 6 -Current Size (cm) - Depth 0.1 0.1 -Total Square Cm 51.0 45.0 -Exudate Amt Medium Large -Exudate Type Serosanguineous Serosanguineous -Wound Margin Distinct, Distinct, Outline Outline Attached Attached -Granulation Amt Medium (34-66%) Small (1-33%) -Granulation Quality Pillager Pillager -Necrosis Amt Medium (34-66%) Large (67-100%) -Necrotic Tissue Type Adherent Slough Adherent Slough -Structure Exposed N/A N/A -Texture (Violeta-wound Skin Appearance) Localized Edema Scarring ,Scarring -Moisture (Violeta-wound Skin Appearance) Weeping No Abnormality -Color (Violeta-wound Skin Appearance) No Abnormality Hemosiderin Staining -Temperature (Violeta-wound Skin No Abnormality No Abnormality Appearance) (Pt Warm) (Pt Warm) -Tenderness on Palpation (Violeta-wound No No Skin Appearance) -Ulcer Cleansing Soap and Water Soap and Water -Foul Odor after Cleansing No No -Anesthetic Used 4% Lidocaine 4% Lidocaine Solution Solution #1 Left Lower Davey -Current Size (cm) - Length 0.8 0.5 -Current Size (cm) - Width 0.6 0.5 -Current Size (cm) - Depth 0.1 0.1 -Total Square Cm 0.48 0.25 -Exudate Amt Small Small -Exudate Type Serosanguineous -Wound Margin Distinct, Distinct, Outline Outline Attached Attached -Granulation Amt Small (1-33%) None Present (0 %) -Granulation Quality Red -Necrosis Amt Small (1-33%) Large (67-100%) -Necrotic Tissue Type Adherent Slough Adherent Slough -Structure Exposed N/A N/A -Texture (Violeta-wound Skin Appearance) Scarring Scarring -Moisture (Violeta-wound Skin Appearance) No Abnormality -Color (Violeta-wound Skin Appearance) No Abnormality Hemosiderin Staining -Temperature (Violeta-wound Skin No Abnormality No Abnormality Appearance) (Pt Warm) (Pt Warm) -Ulcer Cleansing Soap and Water Soap and Water -Foul Odor after Cleansing No No -Anesthetic Used 4% Lidocaine 4% Lidocaine Solution Solution Right Calf (cm) 54.5 52 Right Ankle (cm) 34 36 Left Calf (cm) 49 46.5 Left Ankle (cm) 34 33.5 WC - Nurse 2 - General Ulcer CM Notes Start: 01/17/25 13:12 Freq: Status: Active Protocol: Activity Type Activity Date Activity User E-sign Co-sign Detail Recorded Client Recorded Date Recorded By Document 01/17/25 13:33 [id number] 01/17/25 13:40 Document 01/25/25 13:44 [id number] 01/25/25 13:53 01/17/25 01/25/25 13:33 13:44 Wound Center Nurse 2 #2 Right Lower Davey -Time 13:33 13:45 -Correct Patient Yes Yes -Correct Side, Site, Position Yes Yes -Correct Procedure No -Procedure Performed No -Tunneling No No -Undermining/Tunneling No No -Circular Undermining No No -Wound/Ulcer Outcome Not Healed Not Healed -Ulcer Cleansing Not Cleansed Rinsed/ Irrigated with Saline -Foul Odor after Cleansing No No -Bioengineered Tissue No No -Bleeding Controlled with NA NA -Offloading No #1 Left Lower Davey -Time 13:33 13:45 -Correct Patient Yes Yes -Correct Side, Site, Position Yes Yes -Correct Procedure No No -Procedure Performed No No -Tunneling No No -Undermining/Tunneling No No -Circular Undermining No No -Wound/Ulcer Outcome Not Healed Not Healed -Ulcer Cleansing Not Cleansed Rinsed/ Irrigated with Saline -Foul Odor after Cleansing No No -Bioengineered Tissue No No -Bleeding Controlled with NA NA -Treatment Response Procedure Tolerated Well -Offloading No No Pain Scale: 0-10 Numeric Is Patient Pain Free? Yes Yes - Nurse 3 - General Ulcer D/C NN Start: 01/17/25 13:12 Freq: Status: Active Protocol: Activity Type Activity Date Activity User E-sign Co-sign Detail Recorded Client Recorded Date Recorded By Document 01/17/25 13:57 [id number] 01/17/25 13:58 Document 01/25/25 14:01 [id number] 01/25/25 14:02 01/17/25 01/25/25 13:57 14:01 Wound Care Center Nurse 3 #2 Right Lower Davey -Primary Dressing Applied C Hydrogel -Other Dressing HYDROGEL -Primary Dressing Covered/Secured with Dry Gauze & Dry Gauze & Roll Gauze, Roll Gauze, Secured with Secured with Tape Tape -Hydrogel 1 #1 Left Lower Davey -Other Dressing hydrogel HYDROGEL -Primary Dressing Covered/Secured with Dry Gauze & Dry Gauze & Roll Gauze, Roll Gauze, Secured with Secured with Tape Tape BLE -Tubular Bandage Double Layer Double Layer -Size of Tubigrip Used Size F Size F -Size F ($) 4 4 Pain Scale: 0-10 Numeric Is Patient Pain Free? Yes Yes - Visit Discharge Discharge Condition Stable Stable Ambulatory Status Ambulatory,Cane Wheelchair Transportation Private Auto Medication Reconcilliation completed & No No provided to patient/care provider Clinical Summary of Care Provided Yes Yes Assessment/Plan Assessment/Plan (1) Ulcer of right lower extremity, limited to breakdown of skin: CODE(S): L97.911 - Non-pressure chronic ulcer of unspecified part of right lower leg limited to breakdown of skin PLAN: nonpressure chronic ulcer of the right anterior davey limited to breakdown of the skin (2) Ulcer of left lower extremity, limited to breakdown of skin: CODE(S): L97.921 - Non-pressure chronic ulcer of unspecified part of left lower leg limited to breakdown of skin PLAN: nonpressure chronic ulcer of the left anterior davey limited to breakdown of the skin (3) Bilateral lower extremity edema: CODE(S): R60.0 - Localized edema (4) Lymphedema: CODE(S): I89.0 - Lymphedema, not elsewhere classified (5) Type 2 diabetes mellitus: CODE(S): E11.9 - Type 2 diabetes mellitus without complications QUALIFIERS: Diabetes mellitus senior care insulin use: without senior care use Diabetes mellitus complication status: without complication Qualified Code(s): E11.9 - Type 2 diabetes mellitus without complications (6) Morbid obesity with BMI of 60.0-69.9, adult: CODE(S): E66.01 - Morbid (severe) obesity due to excess calories; Z68.44 - Body mass index [BMI] 60.0-69.9, adult PLAN: Plan I recommended debridement of both wounds today given the significant slough on the left leg wound and the dried drainage/crusting over the right leg wound. I explained to the patient that while the slough/crusting are natural byproducts of the having an open wound, they are not beneficial to the healing process in any way and reducing this bioburden can help to accelerate healing and allow our topical products to be more effective. She continues to refuse debridement stating it is not needed or helpful despite my explanations. I again emphasized that her edema is likely the primary driving factor in her wounds, with delayed healing exacerbated by her diabetes. I again explained the importance of compression therapy in the management of edema. She states that she wants her swelling to be "fixed". I explained that the only way to do so is to compress and elevate. She needs to be wearing some form of reliable, strong compression. She continues to refuse compression wraps. She is agreeable to Tubigrips this week. I have instructed her to wear only the tubigrips we have provided as the ones she had on today were quite worn out and not likely to be as effective. She is also instructed to be sure to elevate her legs at all times of rest and to avoid prolonged idle sitting/standing. Again discussed that weight loss would also be beneficial. I had a veda discussion with the patient regarding the importance of compliance. I advised that if she does not agree with my recommendations for treatment then she can seek a second opinion. I advised that if she is not compliant with our instructions then there is not much benefit in her returning for continued treatment here. She seemed to acknowledge understanding. She did wish to return again next week. Return in 1 week, sooner as needed.
== END 2025-02-12 23:59 | disposition home or self-care (01) ==
LOC: WC 13:30
PROVIDERS: PCP Family Medicine; Referring Provider Student in an Organized Health Care Education/Training Program; Visit Provider Physician Assistant
DX: E11.622 Type 2 diabetes mellitus with other skin ulcer (principal); L97.821 Non-pressure chronic ulcer of other part of left lower leg limited to breakdown of skin; L97.811 Non-pressure chronic ulcer of other part of right lower leg limited to breakdown of skin; I11.0 Hypertensive heart disease with heart failure; I50.9 Heart failure, unspecified; E66.01 Morbid (severe) obesity due to excess calories; Z68.44 Body mass index [BMI] 60.0-69.9, adult; E11.40 Type 2 diabetes mellitus with diabetic neuropathy, unspecified; I89.0 Lymphedema, not elsewhere classified; Z79.84 Long term (current) use of oral hypoglycemic drugs; E78.00 Pure hypercholesterolemia, unspecified; Z79.01 Long term (current) use of anticoagulants; Z79.899 Other long term (current) drug therapy
CPT/HCPCS: 99213; G0463

== ENCOUNTER 2025-05-15 09:55 | Outpatient (RCR) | payer MEDICARE, OTHER, SELFPAY ==
--- NOTE | 2025-05-15 11:29 | HP.OTEVAL ---
Patient's Visit Information Visit Information Visit Information: GANGA BRUCE is a 74 year old F, referred to Occupational Therapy by Dr. Alejandro Gilmore, DO, with a diagnosis of lymphedema. Date of Evaluation: 05/15/25 Occupational Therapist: Odalis Stewart, OTR/Adam, CHT Subjective Subjective: This 74 year old female was seen in OT with dx. of lymphedema. Order is for fitting for compression socks. pt has been seen in therapy services for Occupational Therapy for lymphedema in 2023. pt states her last compression socks she purchased was about 2 months ago. Pt states she gets her compression socks at the medical supply at [facility]. pt states the compression sock she got just does not feel right-and she could not wear them- pt states they socks disappeared. Pt states she can not find them. pt states the tights she has on now are ones she purchased from from [employer]. pt states she can not wear compression on her legs - states she was using knee high compression sock. states she has velcro closure devices but feels this might be stretched out. pt states she used tubigrip on her legs as well. just can not get anything to work on decreasing her leg swelling. pt arrives with one shoe on and states she could not find her other shoe- states she only can order new shoes 1x a year and will need to order new ones with her foot dr. pt states due the swelling in her feet she has difficulty getting shoes to fit. ADLs Comments: pt states she lives alone pt states she is MOD IND with bathing and dressing- states she uses a shower chair and has grab bars in her shower. pt states she struggles with putting her compression socks on . Lymphedema (Circumferential Measure) Mid-foot: right 28cm left 26cm Ankle: right 36cm 33cm Lower calf: right 43cm left 36cm Largest calf: right 49cm left 45 cm Below knee: right 46cm left 42 cme Lower Exremity Comments: Lymphedema (Circumferential Measure) ( this is measurements from 2023) Mid-foot: right 21cm left 22cm Ankle: right 27cm left 27cm Lower calf: right 29cm left 29cm Largest calf: right 44cm left 44cm Below knee: right 41cm left 38cm lymphedema life impact scale score 40/68 based on current measurements pt is demo difficulty mtg. her LE lymphedema. pt would benefit from compression pump to assist pt in life long mtg. of her LE lymphedema. Pt is receptive to this POC. Goals Goal: Patient will demonstrate a 20% reduction in edema by discharge: Yes Goal: Patient will demonstrate adequate knowledge of self-bandaging by the end of the first week.: Yes Goal: Patient will demonstrate adequate knowledge of self-massage by the end of the second week.: Yes Goal: Patient will demonstrate adequate knowledge of skin care and precautions by the end of the first week.: Yes Goal: Patient will demonstrate adequate knowledge of therapeutic exercises by discharge.: Yes Goal: Patient will select an appropriate compression garment and demonstrate adequate knowledge of correct donning technique, care and wearing schedule by discharge.: Yes Goal: Patient will voice understanding of need to replace compression garment every four to six months by discharge.: Yes Rehabilitation General Assessment: pt demo with stage II lymphedema of bilateral LE. Despite pts conservative treatment of elevation- compression- and exercise, pt continues to demo increase in bilateral LE limb size. pts skin demo with fibrotic soft tissue changes. pt would benefit from home compression pump to assist pt in mtg. of her LE lymphedema. Pt is to cont. to wear her compression socks 20-30mmHg, exercise and elevate legs. Therapist will work with company to see if insurance will cover compression pump for pt to mtg. LE lymphedema. pt receptive and agree to POC. Anticipated Interventions Anticipated Interventions: Education re Life-long lymphedema Management, Education re Self-Bandaging Techniques, Education re Skin Care and Precautions, Education re Self Massage Techniques, Education re Correct Donning Tech,Care&Wearing Sched Comp Garments and Home Program Visit Plan TEXT: Thank you for the opportunity to evaluate your patient. For Medicare and Medicare HMO plans, please review the plan of care and approve it. It will need to be FAXED BACK to us at [phone] for Medicare purposes. Please let me know if there are questions or concerns regarding this plan of care. Physician Signature: Date:
== END 2025-05-15 19:00 | disposition home or self-care (01) ==
LOC: OT 09:55
PROVIDERS: PCP Family Medicine; Referring Provider Family Medicine; Visit Provider Family Medicine
DX: I89.0 Lymphedema, not elsewhere classified (principal)
CPT/HCPCS: 97166